=== PATIENT | male | born 1995 | race Caucasian/White ===

== ENCOUNTER 2018-01-10 17:03 | Emergency (ER) | payer OTHER ==
[~2018-01-10] VITALS: Ht 170.2 cm; Wt 72.0 kg
[2018-01-10 17:36] LABS: BASOPHILS % (AUTO) 0.2 % (0-1); EOSINOPHILS % (AUTO) 0 % (0-6); HEMATOCRIT 47.1 % (42.0-52.0); HEMOGLOBIN 16.2 g/dl (14.0-17.9); LYMPHOCYTES # (AUTO) 1.1 X10'3 (1.1-4.8); LYMPHOCYTES % (AUTO) 9.5 % (21-51); MEAN CORPUSCULAR HEMOGLOBIN 30.6 PG (27.0-31.0); MEAN CORPUSCULAR HGB CONC 34.3 % (33.0-36.5); MEAN CORPUSCULAR VOLUME 89.2 FL (78-98); MEAN PLATELET VOLUME 7.9 FL (7.4-10.4); MONOCYTES # (AUTO) 0.5 X10'3 (0-0.9); MONOCYTES % (AUTO) 4.5 % (2-12); NEUTROPHILS # (AUTO) 9.7 X10'3 (1.8-7.7); NEUTROPHILS % (AUTO) 85.8 % (42-75); PLATELET COUNT 251 X10'3 (140-440); RED BLOOD COUNT 5.28 X10'6 (4.70-6.10); RED CELL DISTRIBUTION WIDTH 12.9 % (11.5-14.5); WHITE BLOOD COUNT 11.4 X10'3 (4.5-11.0)
[2018-01-10 17:39] LABS: CLARITY,URINE CLOUDY (Clear); COLOR,URINE YELLOW (Yellow); GLUCOSE, URINE NEGATIVE (Neg); KETONES,URINE NEGATIVE (Neg); LEUKOCYTE ESTERASE ,URINE NEGATIVE (Neg); NITRITES, URINE NEGATIVE (Neg); OCCULT BLOOD,URINE NEGATIVE (Neg); PH,URINE 8.5 (4.8-8.0); PROTEIN,URINE NEGATIVE (Neg); UROBILINOGEN,URINE 0.2 E.U/dL (0.2-1.0)
[2018-01-10 17:40] LABS: UA COLLECTION TYPE CLN CATCH MIDSTREAM
[2018-01-10 17:45] LABS: AMORPHOUS PHOSPHATES 3+; MUCUS STRANDS MODERATE /LPF (Neg); SQUAMOUS EPITHELIAL CELL,UR MODERATE /LPF (FEW)
[2018-01-10] MEDS ORDERED: ondansetron/PF 4mg/2ml inj IV ONE (17:45)
[2018-01-10] MEDS ORDERED: dicyclomine 10mg/ml 2ml ampule IM ONE (17:45)
[2018-01-10] MEDS ORDERED: ketorolac tromethamine 15mg/ml inj. IV ONE (17:45)
[2018-01-10] MEDS ORDERED: normal saline 1000ML IV soln IVB ONE (17:45)
[2018-01-10 17:46] LABS: PROTHROMBIN TIME 10.5 SECONDS (9.0-12.0)
[2018-01-10 17:46] LABS: BACTERIA,URINE 1+ /HPF (Neg); RBC,URINE 0-2 /HPF (0-2)
[2018-01-10 17:52] LABS: ALANINE AMINOTRANSFERASE 26 U/L (12-78); ALBUMIN 4.7 G/DL (3.4-5.0); ALBUMIN/GLOBULIN RATIO 1.3 (1.1-1.5); ALKALINE PHOSPHATASE 85 IU/L (46-116); ANION GAP 10 (8-16); ASPARTATE AMINO TRANSFERASE 15 U/L (10-37); BILIRUBIN,TOTAL 0.9 MG/DL (0.1-1.0); BLOOD UREA NITROGEN 6 MG/DL (7-18); BUN/CREATININE RATIO 6.5 (5.4-32.0); CALCIUM 9.6 MG/DL (8.5-10.1); CHLORIDE 103 MMOL/L (99-107); CREATININE 0.92 MG/DL (0.60-1.10); GLUCOSE 108 MG/DL (70-104); LIPASE 104 U/L (73-393); POTASSIUM 3.3 MMOL/L (3.5-5.1); SODIUM 142 MMOL/L (135-145); TOTAL CARBON DIOXIDE 29.5 MMOL/L (24-32); TOTAL PROTEIN 8.4 G/DL (6.4-8.2); eGFR > 90 ML/MIN
[2018-01-10 17:54] LABS: URINE AMPHETAMINE SCREEN NEGATIVE (Neg); URINE BARBITUATE SCREEN NEGATIVE (Neg); URINE BENZODIAZEPINES SCREEN NEGATIVE (Neg); URINE CANNABINOID SCREEN POSITIVE (Neg); URINE COCAINE SCREEN NEGATIVE (Neg); URINE METHADONE SCREEN NEGATIVE (Neg); URINE OPIATE SCREEN NEGATIVE (Neg); URINE PHENCYCLIDINE SCREEN NEGATIVE (Neg)
[2018-01-10] MEDS ORDERED: HYDROcodone/acetaminophen 5mg/325mg tablet PO ONE (18:50)
[2018-01-10] MEDS ORDERED: ONDA4TAB12 PO (18:56)
[2018-01-10 19:08] VITALS: BP 115/64
== END 2018-01-10 19:11 | disposition home or self-care (01) ==
LOC: ER 17:04
DX: R10.13 Epigastric pain (principal)
CPT/HCPCS: 36415; 80053; 80305; 81001; 83690; 85025; 85610; 87088; 96361; 96372; 96374; 96375; 99284; J0500; J1885; J2405; J7030

== ENCOUNTER 2018-09-02 19:41 | Emergency (ER) | payer MEDICAID ==
[~2018-09-02] VITALS: Ht 167.6 cm; Wt 60.0 kg
[~2018-09-02 19:41] MED LIST: ONDA4TAB12 PO
[2018-09-02] MEDS ORDERED: ondansetron/PF 4mg/2ml inj IV ONE (20:35)
[2018-09-02] MEDS ORDERED: normal saline 1000ML IV soln IVB ONE (20:35)
[2018-09-02 20:42] VITALS: BP 125/80
[2018-09-02] MEDS ORDERED: morphine 4 MG/ML inj SYRINge IV ONE (20:45)
[2018-09-02 21:25] LABS: ALANINE AMINOTRANSFERASE 39 U/L (12-78); ALBUMIN 4.3 G/DL (3.4-5.0); ALBUMIN/GLOBULIN RATIO 1.3 (1.1-1.5); ALKALINE PHOSPHATASE 75 IU/L (46-116); ANION GAP 12 (8-16); ASPARTATE AMINO TRANSFERASE 16 U/L (10-37); BILIRUBIN,TOTAL 0.8 MG/DL (0.1-1.0); BLOOD UREA NITROGEN 10 MG/DL (7-18); CALCIUM 9.1 MG/DL (8.5-10.1); CHLORIDE 103 MMOL/L (99-107); CREATININE 0.83 MG/DL (0.60-1.10); GLUCOSE 157 MG/DL (70-104); LIPASE 111 U/L (73-393); POTASSIUM 3.3 MMOL/L (3.5-5.1); SODIUM 141 MMOL/L (135-145); TOTAL CARBON DIOXIDE 25.7 MMOL/L (24-32); TOTAL PROTEIN 7.6 G/DL (6.4-8.2); eGFR > 90 ML/MIN
[2018-09-02 21:28] LABS: H PYLORI ANTIBODY NEGATIVE (Neg)
[2018-09-02] MEDS: potassium Cl 20 mEq SR tablet PO ONE ×2 (21:45→22:35)
[2018-09-02 21:56] LABS: BASOPHILS % (AUTO) 0 % (0-1); EOSINOPHILS # (AUTO) 0.2 X10'3 (0-0.9); EOSINOPHILS % (AUTO) 1.2 % (0-6); HEMOGLOBIN 15.1 g/dl (14.0-17.9); LYMPHOCYTES % (AUTO) 7.5 % (21-51); MEAN CORPUSCULAR HEMOGLOBIN 30.8 PG (27.0-31.0); MEAN CORPUSCULAR HGB CONC 34.2 g/dL (33.0-36.5); MEAN PLATELET VOLUME 7.8 FL (7.4-10.4); MONOCYTES # (AUTO) 0.5 X10'3 (0-0.9); MONOCYTES % (AUTO) 3.6 % (2-12); NEUTROPHILS # (AUTO) 11.8 X10'3 (1.8-7.7); NEUTROPHILS % (AUTO) 87.7 % (42-75); PLATELET COUNT 237 X10'3 (140-440); RED BLOOD COUNT 4.89 X10'6 (4.70-6.10); RED CELL DISTRIBUTION WIDTH 12.7 % (11.5-14.5); WHITE BLOOD COUNT 13.4 X10'3 (4.5-11.0)
--- NOTE | 2018-09-02 22:02 | NUR ---
PT REPORTS HE IS VERY THIRSTY AND WOULD LIKE SOME JUICE. DR. VICENTE OK WITH HIM HAVING SOME. PT CURRENTLY DENIES NAUSEA.
--- NOTE | 2018-09-02 22:24 | NUR ---
PT ASKING DR. VICENTE FOR MEDS FOR HIS STOMACH. PT NOW HAS FAMILY AT BEDSIDE. PT TOLERATING THE JUICE HE DRANK EARLIER.
[2018-09-02] MEDS ORDERED: famotidine 20mg tablet PO ONE (22:30)
[2018-09-02] MEDS ORDERED: mag hydrox/Alum hydrox/simeth 30ml oral suspension PO ONE (22:30)
[2018-09-02] MEDS ORDERED: POTA10CA44 PO (22:38)
[2018-09-02] MEDS ORDERED: metoclopramide 5 mg/ml inj IV ONE (22:40)
--- NOTE | 2018-09-02 22:42 | NUR ---
PT IS DC READY, BUT AWAITING TO FINISH 2ND LITER NS. ALSO HAD ORDERS FOR KDUR AND FAMOTADINE AND MALLOX, BUT PT NOW REPORTING HIS ABD DISCOMFORT AND SOME NAUSEA RETURNING AND HE IS CONCERNED ABOUT TAKINIG ANYTHING ORALLY. DR. VICENTE UPDATED AND WILL ORDER REGLAN AND GIVE PT SCRIPT FOR POTASSIUM.
--- NOTE | 2018-09-02 23:15 | NUR ---
Pt to be discharged. Dr. Morris talking with Pt and 3 friends at bedside. Just given reglan.
[2018-09-03 00:08] LABS: PLATELET ESTIMATE NORMAL; TOTAL CELLS COUNTED 100
== END 2018-09-03 | disposition home or self-care (01) ==
LOC: ER 19:42
DX: K29.21 Alcoholic gastritis with bleeding (principal); E87.6 Hypokalemia; F12.90 Cannabis use, unspecified, uncomplicated
CPT/HCPCS: 80053; 83690; 85025; 86677; 96361; 96374; 96375; 99284; J2270; J2405; J2765; J7030

== ENCOUNTER 2018-09-26 06:20 | Emergency (ER) | payer MEDICAID ==
[~2018-09-26] VITALS: Ht 162.6 cm; Wt 165.0 kg
[2018-09-26] MEDS ORDERED: normal saline 1000ML IV soln IVB ONE ×2 (07:00)
[2018-09-26] MEDS ORDERED: pantoprazole 40 MG vial IV ONE (07:00)
[2018-09-26] MEDS ORDERED: ondansetron/PF 4mg/2ml inj IV ONE (07:00)
[2018-09-26] MEDS ORDERED: PANT-47 PO (07:22)
[2018-09-26] MEDS ORDERED: ONDA8TAB13 PO (07:22)
[2018-09-26] MEDS ORDERED: proCHLORperazine 10 MG/2 ml inj IV ONE (08:10)
[2018-09-26 08:26] VITALS: BP 122/62
[2018-09-26] MEDS ORDERED: PROM25SU46 RC (22:05)
[2018-09-26] MEDS ORDERED: ACET-2615 PO (22:05)
[2018-09-26] MEDS ORDERED: POTA20TA19 PO (22:11)
== END 2018-09-26 09:17 | disposition home or self-care (01) ==
LOC: ER 06:21
DX: R11.10 Vomiting, unspecified (principal); F12.90 Cannabis use, unspecified, uncomplicated
CPT/HCPCS: 93005; 96361; 96374; 96375; 99283; C9113; J0780; J2405; J7030

== ENCOUNTER 2018-09-26 20:00 | Emergency (ER) | payer MEDICAID ==
[~2018-09-26] VITALS: Ht 167.6 cm; Wt 74.0 kg
[~2018-09-26 20:00] MED LIST changes: +ONDA8TAB13 PO; +PANT-47 PO
--- NOTE | 2018-09-26 20:40 | NUR ---
DR SALCEDO AT BEDSIDE WITH PT, PT FALLING ASLEEP WHILE DR SALCEDO ASKING QUESTIONS. DR SALCEDO DID HAVE TO TAP PT TO WAKE HIM UP.
[2018-09-26] MEDS ORDERED: normal saline 1000ml 1,000 ML IV ONE ×2 (20:50)
[2018-09-26] MEDS ORDERED: diphenhydrAMINE 50 mg/ml inj IV ONE (20:50)
[2018-09-26] MEDS ORDERED: proCHLORperazine 10 MG/2 ml inj IV ONE (20:50)
[2018-09-26 21:12] LABS: BASOPHILS % (AUTO) 0.1 % (0-1); EOSINOPHILS % (AUTO) 0 % (0-6); HEMATOCRIT 42.3 % (42.0-52.0); HEMOGLOBIN 14.3 g/dl (14.0-17.9); LYMPHOCYTES # (AUTO) 0.7 X10'3 (1.1-4.8); LYMPHOCYTES % (AUTO) 6.2 % (21-51); MEAN CORPUSCULAR HEMOGLOBIN 29.8 PG (27.0-31.0); MEAN CORPUSCULAR HGB CONC 33.9 g/dL (33.0-36.5); MEAN CORPUSCULAR VOLUME 87.9 FL (78-98); MEAN PLATELET VOLUME 7.4 FL (7.4-10.4); MONOCYTES # (AUTO) 0.3 X10'3 (0-0.9); MONOCYTES % (AUTO) 2.3 % (2-12); NEUTROPHILS # (AUTO) 10.5 X10'3 (1.8-7.7); NEUTROPHILS % (AUTO) 91.4 % (42-75); PLATELET COUNT 266 X10'3 (140-440); RED BLOOD COUNT 4.81 X10'6 (4.70-6.10); RED CELL DISTRIBUTION WIDTH 12.7 % (11.5-14.5); WHITE BLOOD COUNT 11.5 X10'3 (4.5-11.0)
[2018-09-26 21:22] LABS: ALANINE AMINOTRANSFERASE 28 U/L (12-78); ALBUMIN/GLOBULIN RATIO 1.3 (1.1-1.5); ALKALINE PHOSPHATASE 72 IU/L (46-116); ANION GAP 15 (8-16); ASPARTATE AMINO TRANSFERASE 18 U/L (10-37); BILIRUBIN,TOTAL 0.7 MG/DL (0.1-1.0); BLOOD UREA NITROGEN 7 MG/DL (7-18); BUN/CREATININE RATIO 7.9 (5.4-32.0); CALCIUM 8.7 MG/DL (8.5-10.1); CHLORIDE 102 MMOL/L (99-107); CREATININE 0.89 MG/DL (0.60-1.10); ETHANOL < 0.010 GM/DL (0.0-0.010); GLUCOSE 122 MG/DL (70-104); LIPASE 199 U/L (73-393); SODIUM 139 MMOL/L (135-145); TOTAL CARBON DIOXIDE 22.4 MMOL/L (24-32); TOTAL PROTEIN 7.2 G/DL (6.4-8.2); eGFR > 90 ML/MIN
[2018-09-26] MEDS ORDERED: ketorolac trometh. 30mg/ml inj. IV ONE (21:40)
[2018-09-26] MEDS ORDERED: potassium Cl 10 mEq/100mL bag IV ONE (21:40)
[2018-09-26] MEDS ORDERED: potassium 10mEq/100ml NS w/LIDOcaine (10mg/bag) IV ONE (21:45)
[2018-09-26] MEDS ORDERED: PROM25SU46 RC (22:05)
[2018-09-26] MEDS ORDERED: ACET-2615 PO (22:05)
[2018-09-26] MEDS ORDERED: POTA20TA19 PO (22:11)
--- NOTE | 2018-09-26 22:17 | NUR ---
ASSISTING RN WITH PT CARE, IV SITE IS PATENT AND CLEAR, GAVE PT WARM BLANKET, PT HAS RIDE HOME WHEN HE IS DC'D, PT RESTING QUIETLY ON GURNEY
[2018-09-26 23:19] VITALS: BP 124/47
== END 2018-09-26 23:20 | disposition home or self-care (01) ==
LOC: ER 20:00
DX: A08.4 Viral intestinal infection, unspecified (principal); F12.90 Cannabis use, unspecified, uncomplicated
CPT/HCPCS: 36415; 80053; 80320; 83690; 85025; 96361; 96374; 96375; 99283; J0780; J1200; J1885; J3480; J7030

== ENCOUNTER 2018-11-05 07:51 | Emergency (ER) | payer MEDICAID ==
[~2018-11-05] VITALS: Ht 167.6 cm; Wt 73.0 kg
[~2018-11-05 07:51] MED LIST changes: +PROM25SU46 RC
[2018-11-05 08:22] VITALS: BP 125/69
[2018-11-05] MEDS ORDERED: ONDA8TAB6 PO (14:45)
[2018-11-05] MEDS ORDERED: PANT-47 PO (14:45)
[2018-11-05] MEDS ORDERED: PHE25R PR (16:06)
== END 2018-11-05 10:52 | disposition left against medical advice (07) ==
LOC: ER 07:53
DX: R10.9 Unspecified abdominal pain (principal); R11.10 Vomiting, unspecified; Z53.21 Procedure and treatment not carried out due to patient leaving prior to being seen by health care provider

== ENCOUNTER 2018-11-05 12:04 | Emergency (ER) | payer MEDICAID ==
[~2018-11-05] VITALS: Ht 170.2 cm; Wt 73.0 kg
--- NOTE | 2018-11-05 12:50 | NUR ---
PATIENT STICKING HIS FINGER DOWN HIS THROAT IN LOBBY: ASKED ME IN TRIAGE FOR ICE FOR HIS THROAT ASKED THE PATIENT NOT TO STICK HIS FINGER DOWN HIS THROAT: VOMIT IS CLEARISH BROWN, NPT BLOODY
[2018-11-05 13:13] LABS: BASOPHILS % (AUTO) 0.1 % (0-1); EOSINOPHILS % (AUTO) 0 % (0-6); HEMATOCRIT 42.6 % (42.0-52.0); HEMOGLOBIN 14.6 g/dl (14.0-17.9); LYMPHOCYTES # (AUTO) 0.7 X10'3 (1.1-4.8); MEAN CORPUSCULAR HGB CONC 34.3 g/dL (33.0-36.5); MEAN CORPUSCULAR VOLUME 87.5 FL (78-98); MEAN PLATELET VOLUME 7.6 FL (7.4-10.4); MONOCYTES # (AUTO) 0.3 X10'3 (0-0.9); NEUTROPHILS # (AUTO) 10.5 X10'3 (1.8-7.7); NEUTROPHILS % (AUTO) 90.9 % (42-75); PLATELET COUNT 244 X10'3 (140-440); RED BLOOD COUNT 4.87 X10'6 (4.70-6.10); WHITE BLOOD COUNT 11.5 X10'3 (4.5-11.0)
[2018-11-05 13:24] LABS: ALANINE AMINOTRANSFERASE 31 U/L (12-78); ALBUMIN 4.5 G/DL (3.4-5.0); ALBUMIN/GLOBULIN RATIO 1.4 (1.1-1.5); ALKALINE PHOSPHATASE 73 IU/L (46-116); ANION GAP 12 (8-16); ASPARTATE AMINO TRANSFERASE 30 U/L (10-37); BILIRUBIN,TOTAL 0.6 MG/DL (0.1-1.0); BLOOD UREA NITROGEN 8 MG/DL (7-18); BUN/CREATININE RATIO 9.6 (5.4-32.0); CALCIUM 9.5 MG/DL (8.5-10.1); CHLORIDE 105 MMOL/L (99-107); CREATININE 0.83 MG/DL (0.60-1.10); GLUCOSE 153 MG/DL (70-104); LIPASE 93 U/L (73-393); POTASSIUM 3.2 MMOL/L (3.5-5.1); SODIUM 139 MMOL/L (135-145); TOTAL CARBON DIOXIDE 22.5 MMOL/L (24-32); TOTAL PROTEIN 7.8 G/DL (6.4-8.2); eGFR > 90 ML/MIN
[2018-11-05] MEDS ORDERED: normal saline 1000ml 1,000 ML IV ONE ×2 (14:35→14:40)
[2018-11-05] MEDS ORDERED: ketorolac trometh. 30mg/ml inj. IV ONE (14:35)
[2018-11-05] MEDS ORDERED: ondansetron/PF 4mg/2ml inj IV ONE (14:35)
[2018-11-05] MEDS ORDERED: pantoprazole 40 MG vial IV ONE (14:35)
[2018-11-05] MEDS ORDERED: potassium 10mEq/100ml NS w/LIDOcaine (10mg/bag) IV ONE (14:40)
[2018-11-05] MEDS ORDERED: mag hydrox/Alum hydrox/simeth 30ml oral suspension PO ONE (14:40)
[2018-11-05] MEDS ORDERED: famotidine/PF 10 mg/ml inj IV ONE (14:40)
[2018-11-05] MEDS ORDERED: ONDA8TAB6 PO (14:45)
[2018-11-05] MEDS ORDERED: PANT-47 PO (14:45)
--- NOTE | 2018-11-05 15:32 | NUR ---
Patient continues to state he vomiting. Noted dark red emisis in bag. Dr. Mohan aware.
[2018-11-05] MEDS ORDERED: proCHLORperazine 10 MG/2 ml inj IV ONE (15:35)
[2018-11-05] MEDS ORDERED: LORazepam 2 mg/ml vial IV ONE (15:35)
[2018-11-05] MEDS ORDERED: diphenhydrAMINE 50 mg/ml inj IV ONE (15:35)
[2018-11-05] MEDS ORDERED: morphine 4 MG/ML inj SYRINge IM ONE (15:50)
[2018-11-05] MEDS ORDERED: dicyclomine 10mg/ml 2ml ampule IM ONE (15:50)
[2018-11-05] MEDS ORDERED: PHE25R PR (16:06)
[2018-11-05 16:19] LABS: CLARITY,URINE CLOUDY (Clear); COLOR,URINE STRAW (Yellow); GLUCOSE, URINE NEGATIVE (Neg); KETONES,URINE 15 mg/dl (Neg); LEUKOCYTE ESTERASE ,URINE NEGATIVE (Neg); NITRITES, URINE NEGATIVE (Neg); OCCULT BLOOD,URINE NEGATIVE (Neg); PROTEIN,URINE NEGATIVE (Neg); UROBILINOGEN,URINE 0.2 E.U/dL (0.2-1.0)
--- NOTE | 2018-11-05 16:20 | NUR ---
Patient no longer nauseated. Patient awaiting friend to arrive for ride home.
[2018-11-05 16:24] LABS: URINE AMPHETAMINE SCREEN NEGATIVE (Neg); URINE BARBITUATE SCREEN POSITIVE (Neg); URINE BENZODIAZEPINES SCREEN NEGATIVE (Neg); URINE CANNABINOID SCREEN POSITIVE (Neg); URINE COCAINE SCREEN NEGATIVE (Neg); URINE METHADONE SCREEN NEGATIVE (Neg); URINE OPIATE SCREEN NEGATIVE (Neg); URINE PHENCYCLIDINE SCREEN NEGATIVE (Neg)
[2018-11-05 16:25] LABS: AMORPHOUS PHOSPHATES 4+; UA COLLECTION TYPE CLN CATCH MIDSTREAM
[2018-11-05 16:26] LABS: MUCUS STRANDS MODERATE /LPF (Neg); SQUAMOUS EPITHELIAL CELL,UR FEW /LPF (FEW); TRANSITIONAL EPI CELLS,URINE FEW /HPF
[2018-11-05 16:27] LABS: BACTERIA,URINE NONE SEEN /HPF (Neg); RBC,URINE NONE SEEN /HPF (0-2); WBC,URINE 0-4 /HPF (0-4)
[2018-11-05 17:56] VITALS: BP 107/49
== END 2018-11-05 17:59 | disposition home or self-care (01) ==
LOC: ER 12:05
DX: K29.00 Acute gastritis without bleeding (principal); F12.90 Cannabis use, unspecified, uncomplicated; Z79.899 Other long term (current) drug therapy
CPT/HCPCS: 36415; 80053; 80305; 81001; 83690; 85025; 96361; 96372; 96374; 96375; 99283; C9113; J0500; J0780; J1200; J1885; J2060; J2405; J3480; J3490; J7030

== ENCOUNTER 2018-12-31 07:43 | Emergency (ER) | payer MEDICAID ==
[~2018-12-31] VITALS: Ht 167.6 cm; Wt 68.3 kg
[~2018-12-31 07:43] MED LIST changes: +ONDA8TAB6 PO; +PHE25R PR
[2018-12-31] MEDS ORDERED: ondansetron/PF 4mg/2ml inj IV ONE (08:15)
[2018-12-31] MEDS ORDERED: normal saline 1000ML IV soln IVB ONE ×2 (08:15→09:40)
[2018-12-31 09:12] LABS: BASOPHILS % (AUTO) 0.1 % (0-1); EOSINOPHILS % (AUTO) 0.1 % (0-6); HEMATOCRIT 42.5 % (42.0-52.0); HEMOGLOBIN 14.6 g/dl (14.0-17.9); LYMPHOCYTES # (AUTO) 0.9 X10'3 (1.1-4.8); MEAN CORPUSCULAR HEMOGLOBIN 30.6 PG (27.0-31.0); MEAN CORPUSCULAR HGB CONC 34.4 g/dL (33.0-36.5); MEAN CORPUSCULAR VOLUME 89.1 FL (78-98); MEAN PLATELET VOLUME 7.5 FL (7.4-10.4); MONOCYTES # (AUTO) 0.5 X10'3 (0-0.9); MONOCYTES % (AUTO) 4.4 % (2-12); NEUTROPHILS # (AUTO) 10.2 X10'3 (1.8-7.7); NEUTROPHILS % (AUTO) 87.4 % (42-75); PLATELET COUNT 230 X10'3 (140-440); RED BLOOD COUNT 4.77 X10'6 (4.70-6.10); RED CELL DISTRIBUTION WIDTH 13.2 % (11.5-14.5); WHITE BLOOD COUNT 11.7 X10'3 (4.5-11.0)
[2018-12-31 09:33] LABS: ALANINE AMINOTRANSFERASE 22 U/L (12-78); ALBUMIN 4.1 G/DL (3.4-5.0); ALBUMIN/GLOBULIN RATIO 1.3 (1.1-1.5); ALKALINE PHOSPHATASE 62 IU/L (46-116); ANION GAP 9 (8-16); ASPARTATE AMINO TRANSFERASE 13 U/L (10-37); BILIRUBIN,TOTAL 0.9 MG/DL (0.1-1.0); BLOOD UREA NITROGEN 8 MG/DL (7-18); BUN/CREATININE RATIO 9.4 (5.4-32.0); CHLORIDE 104 MMOL/L (99-107); CREATININE 0.85 MG/DL (0.60-1.10); GLUCOSE 135 MG/DL (70-104); LIPASE 78 U/L (73-393); SODIUM 140 MMOL/L (135-145); TOTAL CARBON DIOXIDE 27.2 MMOL/L (24-32); TOTAL PROTEIN 7.2 G/DL (6.4-8.2); eGFR > 90 ML/MIN
[2018-12-31 09:36] LABS: POTASSIUM 2.8 MMOL/L (3.5-5.1)
[2018-12-31 09:39] LABS: CALCIUM 8.5 MG/DL (8.5-10.1)
[2018-12-31] MEDS ORDERED: proCHLORperazine 10 MG/2 ml inj IV ONE (09:40)
[2018-12-31] MEDS ORDERED: potassium 10mEq/100ml NS w/LIDOcaine (10mg/bag) IV ONE (09:40)
[2018-12-31] MEDS ORDERED: potassium Cl 20 mEq SR tablet PO ONE (09:40)
[2018-12-31] MEDS ORDERED: potassium Cl 10 mEq/100mL bag IV ONE (09:45)
[2018-12-31 09:49] LABS: MAGNESIUM 1.9 MG/DL (1.5-2.4)
[2018-12-31] MEDS ORDERED: POTA-84 PO (11:52)
[2018-12-31 12:08] VITALS: BP 120/65
== END 2018-12-31 12:14 | disposition home or self-care (01) ==
LOC: ER 07:43
DX: R11.2 Nausea with vomiting, unspecified (principal); E87.6 Hypokalemia; F12.20 Cannabis dependence, uncomplicated; R10.13 Epigastric pain; Z79.899 Other long term (current) drug therapy
CPT/HCPCS: 36415; 80053; 83690; 83735; 85025; 93005; 96374; 96375; 99284; J0780; J2405; J3480

== ENCOUNTER 2019-03-02 08:32 | Emergency (ER) | payer MEDICAID ==
[~2019-03-02] VITALS: Ht 167.6 cm; Wt 68.2 kg
[~2019-03-02 08:32] MED LIST changes: +POTA-84 PO
[2019-03-02] MEDS ORDERED: normal saline 1000ML IV soln IVB ONE (08:50)
[2019-03-02] MEDS ORDERED: proCHLORperazine 10 MG/2 ml inj IV ONE (08:50)
[2019-03-02 10:05] LABS: ALANINE AMINOTRANSFERASE 34 U/L (12-78); ALBUMIN 4.2 G/DL (3.4-5.0); ALBUMIN/GLOBULIN RATIO 1.2 (1.1-1.5); ALKALINE PHOSPHATASE 72 IU/L (46-116); ANION GAP 10 (8-16); ASPARTATE AMINO TRANSFERASE 19 U/L (10-37); BILIRUBIN,TOTAL 0.6 MG/DL (0.1-1.0); BLOOD UREA NITROGEN 6 MG/DL (7-18); BUN/CREATININE RATIO 6.5 (5.4-32.0); CHLORIDE 105 MMOL/L (99-107); CREATININE 0.93 MG/DL (0.60-1.10); GLUCOSE 147 MG/DL (70-104); LIPASE 92 U/L (73-393); POTASSIUM 3.7 MMOL/L (3.5-5.1); SODIUM 142 MMOL/L (135-145); TOTAL CARBON DIOXIDE 26.6 MMOL/L (24-32); TOTAL PROTEIN 7.7 G/DL (6.4-8.2); eGFR > 90 ML/MIN
[2019-03-02 10:13] LABS: URINE AMPHETAMINE SCREEN NEGATIVE (Neg); URINE BARBITUATE SCREEN NEGATIVE (Neg); URINE BENZODIAZEPINES SCREEN NEGATIVE (Neg); URINE CANNABINOID SCREEN POSITIVE (Neg); URINE COCAINE SCREEN POSITIVE (Neg); URINE METHADONE SCREEN NEGATIVE (Neg); URINE OPIATE SCREEN NEGATIVE (Neg); URINE PHENCYCLIDINE SCREEN NEGATIVE (Neg)
[2019-03-02 10:14] LABS: BASOPHILS % (AUTO) 0.1 % (0-1); EOSINOPHILS % (AUTO) 0 % (0-6); HEMATOCRIT 45.9 % (42.0-52.0); HEMOGLOBIN 15.6 g/dl (14.0-17.9); LYMPHOCYTES # (AUTO) 1.1 X10'3 (1.1-4.8); LYMPHOCYTES % (AUTO) 7.8 % (21-51); MEAN CORPUSCULAR HEMOGLOBIN 30.3 PG (27.0-31.0); MEAN CORPUSCULAR VOLUME 89.2 FL (78-98); MEAN PLATELET VOLUME 7.6 FL (7.4-10.4); MONOCYTES # (AUTO) 0.4 X10'3 (0-0.9); NEUTROPHILS # (AUTO) 12.2 X10'3 (1.8-7.7); NEUTROPHILS % (AUTO) 89.1 % (42-75); PLATELET COUNT 246 X10'3 (140-440); RED BLOOD COUNT 5.14 X10'6 (4.70-6.10); RED CELL DISTRIBUTION WIDTH 13.2 % (11.5-14.5); WHITE BLOOD COUNT 13.6 X10'3 (4.5-11.0)
[2019-03-02 10:46] VITALS: BP 120/65
== END 2019-03-02 10:48 | disposition home or self-care (01) ==
LOC: ER 08:32
DX: R11.2 Nausea with vomiting, unspecified (principal); R10.13 Epigastric pain; F12.90 Cannabis use, unspecified, uncomplicated; Z79.899 Other long term (current) drug therapy
CPT/HCPCS: 36415; 80053; 80305; 83690; 85025; 96361; 96374; 99283; J0780; J7030

== ENCOUNTER 2019-03-31 21:25 | Emergency (ER) | payer MEDICAID ==
[~2019-03-31] VITALS: Ht 167.6 cm; Wt 72.7 kg
[2019-03-31] MEDS ORDERED: LIDOcaine 1% w/epiNEPHrine 1:200,000 30ml vial IM ONE (22:25)
[2019-03-31] MEDS ORDERED: DOXY100C2 PO (23:17)
[2019-03-31 23:32] VITALS: BP 127/58
== END 2019-03-31 23:36 | disposition home or self-care (01) ==
LOC: ER 21:26
DX: L03.012 Cellulitis of left finger (principal); F12.90 Cannabis use, unspecified, uncomplicated; F10.99 Alcohol use, unspecified with unspecified alcohol-induced disorder; Z79.899 Other long term (current) drug therapy; Y90.9 Presence of alcohol in blood, level not specified
CPT/HCPCS: 10060; 99283

== ENCOUNTER 2019-04-01 12:11 | Emergency (ER) | payer MEDICAID ==
[~2019-04-01] VITALS: Ht 167.6 cm; Wt 77.3 kg
[~2019-04-01 12:11] MED LIST changes: +DOXY100C2 PO
[2019-04-01 12:13] VITALS: BP 132/72
[2019-04-01] MEDS ORDERED: DOXYCYCLINE 100MG CAPSULE PO STA (12:48)
[2019-04-01] MEDS ORDERED: naproxen 500mg tablet PO ONE (12:50)
== END 2019-04-01 13:35 | disposition home or self-care (01) ==
LOC: ER 12:11
DX: L03.012 Cellulitis of left finger (principal); F12.90 Cannabis use, unspecified, uncomplicated; F10.99 Alcohol use, unspecified with unspecified alcohol-induced disorder; Z79.899 Other long term (current) drug therapy; Y90.9 Presence of alcohol in blood, level not specified
CPT/HCPCS: 99283

== ENCOUNTER 2019-06-16 17:05 | Emergency (ER) | payer MEDICAID ==
[~2019-06-16] VITALS: Ht 167.6 cm; Wt 72.0 kg
[~2019-06-16 17:05] MED LIST changes: -DOXY100C2 PO
--- NOTE | 2019-06-16 17:43 | NUR ---
Pt admits to drinking "quite a bit" last night. Pt states he had at least 6 shots of Patron as well as drinking beer.
--- NOTE | 2019-06-16 17:45 | NUR ---
Pt observed sticking his finger down his throat in order to vomit.
[2019-06-16] MEDS ORDERED: ondansetron/PF 4mg/2ml inj IV ONE (18:15)
[2019-06-16] MEDS ORDERED: ketorolac tromethamine 15mg/ml inj. IV ONE ×2 (18:15→19:15)
[2019-06-16] MEDS ORDERED: normal saline 1000ML IV soln IVB ONE (18:30)
[2019-06-16 18:40] LABS: BASOPHILS % (AUTO) 0.1 % (0-1); EOSINOPHILS % (AUTO) 0.1 % (0-6); HEMATOCRIT 43.1 % (42.0-52.0); HEMOGLOBIN 15.1 g/dl (14.0-17.9); LYMPHOCYTES # (AUTO) 1.1 X10'3 (1.1-4.8); LYMPHOCYTES % (AUTO) 10.1 % (21-51); MEAN CORPUSCULAR HEMOGLOBIN 30.9 PG (27.0-31.0); MEAN CORPUSCULAR HGB CONC 35.1 g/dL (33.0-36.5); MEAN CORPUSCULAR VOLUME 88.1 FL (78-98); MEAN PLATELET VOLUME 7.4 FL (7.4-10.4); MONOCYTES # (AUTO) 0.4 X10'3 (0-0.9); MONOCYTES % (AUTO) 3.8 % (2-12); NEUTROPHILS # (AUTO) 9.4 X10'3 (1.8-7.7); NEUTROPHILS % (AUTO) 85.9 % (42-75); PLATELET COUNT 291 X10'3 (140-440); RED CELL DISTRIBUTION WIDTH 12.8 % (11.5-14.5); WHITE BLOOD COUNT 10.9 X10'3 (4.5-11.0)
[2019-06-16 18:44] LABS: ANION GAP 9 (8-16); BILIRUBIN,TOTAL 0.7 MG/DL (0.1-1.0); BLOOD UREA NITROGEN 9 MG/DL (7-18); BUN/CREATININE RATIO 10.3 (5.4-32.0); CALCIUM 8.9 MG/DL (8.5-10.1); CHLORIDE 103 MMOL/L (99-107); CREATININE 0.87 MG/DL (0.60-1.10); GLUCOSE 136 MG/DL (70-104); POTASSIUM 3.2 MMOL/L (3.5-5.1); SODIUM 138 MMOL/L (135-145); eGFR > 90 ML/MIN
[2019-06-16 18:45] LABS: ALANINE AMINOTRANSFERASE 41 U/L (12-78); ALBUMIN 4.2 G/DL (3.4-5.0); ALBUMIN/GLOBULIN RATIO 1.1 (1.1-1.5); ALKALINE PHOSPHATASE 91 IU/L (46-116); ASPARTATE AMINO TRANSFERASE 20 U/L (10-37); ETHANOL < 0.010 GM/DL (0.0-0.010); LIPASE 76 U/L (73-393)
[2019-06-16] MEDS ORDERED: ONDA4TAB6 PO (19:13)
[2019-06-16] MEDS ORDERED: haloperidol lactate 5mg/ml inj IM ONE (19:15)
[2019-06-16] MEDS ORDERED: potassium Cl 20 mEq SR tablet PO STA (19:20)
--- NOTE | 2019-06-16 19:35 | NUR ---
Discussed pt's status with SHELLEY Chiu; new orders received for viscose lidocaine, maalox and pepcid.
[2019-06-16] MEDS ORDERED: mag hydrox/Alum hydrox/simeth 30ml oral suspension PO ONE (19:40)
[2019-06-16] MEDS ORDERED: LIDOcaine Viscous 15ml cup MM PRN (19:40)
[2019-06-16] MEDS ORDERED: famotidine/PF 10 mg/ml inj IV ONE (19:40)
[2019-06-16 20:25] VITALS: BP 137/89
== END 2019-06-16 20:44 | disposition home or self-care (01) ==
LOC: ER 17:06
DX: R11.2 Nausea with vomiting, unspecified (principal); R10.84 Generalized abdominal pain; F12.90 Cannabis use, unspecified, uncomplicated; Z79.899 Other long term (current) drug therapy
CPT/HCPCS: 36415; 80053; 80320; 83690; 85025; 96372; 96374; 96375; 96376; 99283; J1630; J1885; J2405; J3490; J7030

== ENCOUNTER 2019-06-18 00:30 | Emergency (ER) | payer MEDICAID ==
[~2019-06-18] VITALS: Ht 167.6 cm; Wt 61.2 kg
[~2019-06-18 00:30] MED LIST changes: +ONDA4TAB6 PO
--- NOTE | 2019-06-18 01:11 | NUR ---
Witnessed patient putting his finger down his throat in an attempt to make himself throw up
[2019-06-18] MEDS ORDERED: sucralfate 1gm/10ml UD suspension PO ONE (02:00)
[2019-06-18] MEDS ORDERED: proCHLORperazine 10 MG/2 ml inj IM ONE (02:00)
[2019-06-18] MEDS ORDERED: ondansetron 4mg rapidly disintigrating tab PO ONE (02:00)
[2019-06-18] MEDS ORDERED: SUCR1TAB34 PO (02:03)
[2019-06-18] MEDS ORDERED: PHE25R PR (02:03)
[2019-06-18] MEDS ORDERED: PANT-47 PO (02:05)
[2019-06-18] MEDS ORDERED: pantoprazole 40mg Tablet.DR PO ONE (02:05)
[2019-06-18 02:21] VITALS: BP 137/70
[2019-06-18] MEDS ORDERED: NO HOME MEDS (17:13)
== END 2019-06-18 02:27 | disposition home or self-care (01) ==
LOC: ER 00:30
DX: K29.70 Gastritis, unspecified, without bleeding (principal); F12.90 Cannabis use, unspecified, uncomplicated
CPT/HCPCS: 96372; 99284; J0780

== ENCOUNTER 2019-06-18 12:18 | Inpatient (IN) | payer MEDICAID ==
[~2019-06-18] VITALS: Ht 167.6 cm; Wt 71.7 kg
[~2019-06-18 12:18] MED LIST changes: +SUCR1TAB34 PO
[2019-06-18 13:02] LABS: BASOPHILS % (AUTO) 0.1 % (0-1); EOSINOPHILS % (AUTO) 0 % (0-6); HEMATOCRIT 44.6 % (42.0-52.0); HEMOGLOBIN 15.2 g/dl (14.0-17.9); LYMPHOCYTES # (AUTO) 1.5 X10'3 (1.1-4.8); LYMPHOCYTES % (AUTO) 13.8 % (21-51); MEAN CORPUSCULAR HGB CONC 34.2 g/dL (33.0-36.5); MEAN CORPUSCULAR VOLUME 90.8 FL (78-98); MEAN PLATELET VOLUME 7.3 FL (7.4-10.4); MONOCYTES # (AUTO) 0.6 X10'3 (0-0.9); MONOCYTES % (AUTO) 5.3 % (2-12); NEUTROPHILS % (AUTO) 80.8 % (42-75); PLATELET COUNT 287 X10'3 (140-440); RED BLOOD COUNT 4.91 X10'6 (4.70-6.10); RED CELL DISTRIBUTION WIDTH 12.9 % (11.5-14.5); WHITE BLOOD COUNT 11.2 X10'3 (4.5-11.0)
[2019-06-18 13:14] LABS: PARTIAL THROMBOPLASTIN TIME 23 SECONDS (22-32)
[2019-06-18 13:17] LABS: ALBUMIN 4.4 G/DL (3.4-5.0); ALBUMIN/GLOBULIN RATIO 1.1 (1.1-1.5); ALKALINE PHOSPHATASE 96 IU/L (46-116); ANION GAP 20 (8-16); ASPARTATE AMINO TRANSFERASE 33 U/L (10-37); BILIRUBIN,TOTAL 0.7 MG/DL (0.1-1.0); BLOOD UREA NITROGEN 8 MG/DL (7-18); CALCIUM 9.4 MG/DL (8.5-10.1); CHLORIDE 99 MMOL/L (99-107); CREATININE 1.34 MG/DL (0.60-1.10); GLUCOSE 138 MG/DL (70-104); SODIUM 141 MMOL/L (135-145); TOTAL CARBON DIOXIDE 21.8 MMOL/L (24-32); TOTAL PROTEIN 8.4 G/DL (6.4-8.2); eGFR 67 ML/MIN
[2019-06-18] MEDS ORDERED: LORazepam 2 mg/ml vial IV ONE (13:30)
[2019-06-18] MEDS ORDERED: normal saline 1000ml 1,000 ML IV ONE ×2 (13:30)
[2019-06-18 13:49] LABS: CLARITY,URINE CLEAR (Clear); COLOR,URINE YELLOW (Yellow); GLUCOSE, URINE NEGATIVE (Neg); KETONES,URINE TRACE mg/dl (Neg); LEUKOCYTE ESTERASE ,URINE NEGATIVE (Neg); NITRITES, URINE NEGATIVE (Neg); OCCULT BLOOD,URINE NEGATIVE (Neg); PH,URINE 6.5 (4.8-8.0); PROTEIN,URINE NEGATIVE (Neg); UROBILINOGEN,URINE 0.2 E.U/dL (0.2-1.0)
[2019-06-18 13:57] LABS: URINE AMPHETAMINE SCREEN NEGATIVE (Neg); URINE BARBITUATE SCREEN NEGATIVE (Neg); URINE BENZODIAZEPINES SCREEN NEGATIVE (Neg); URINE CANNABINOID SCREEN POSITIVE (Neg); URINE COCAINE SCREEN POSITIVE (Neg); URINE METHADONE SCREEN NEGATIVE (Neg); URINE OPIATE SCREEN NEGATIVE (Neg); URINE PHENCYCLIDINE SCREEN NEGATIVE (Neg)
[2019-06-18 14:07] LABS: UA COLLECTION TYPE STRAIGHT CATH
[2019-06-18 14:20] LABS: ALANINE AMINOTRANSFERASE 39 U/L (12-78)
[2019-06-18 14:42] LABS: MAGNESIUM 2.2 MG/DL (1.5-2.4)
[2019-06-18 14:43] LABS: ETHANOL < 0.010 GM/DL (0.0-0.010)
[2019-06-18] MEDS ORDERED: D5-1/2NS w/20 mEq potassium per 1000ml IV ONE (15:25)
[2019-06-18] MEDS ORDERED: potassium Cl 20mEq in D5-NS 1,000 ML IV ONE (15:30)
[2019-06-18] MEDS ORDERED: potassium CL 20mEq in D5-1/2NS 1,000 ML IV ONE (15:35)
[2019-06-18] MEDS ORDERED: magnesium 2GM in 50ml NS 50 ML IV ONE (15:55)
[2019-06-18] MEDS: normal saline 1000ml 1,000 ML IV SCH ×2 (16:11→20:47)
[2019-06-18] MEDS ORDERED: mag hydrox/Alum hydrox/simeth 30ml oral suspension PO PRN (16:15)
[2019-06-18] MEDS ORDERED: HYDROcodone/acetaminophen 5mg/325mg tablet PO PRN (16:15)
[2019-06-18] MEDS ORDERED: acetaminophen 325mg tablet PO PRN ×2 (16:15)
[2019-06-18] MEDS ORDERED: morphine 2 MG/ML inj. syringe IV PRN ×2 (16:15)
[2019-06-18] MEDS ORDERED: magnesium Cl slow-release 64mg tablet PO PRN (16:15)
[2019-06-18] MEDS ORDERED: magnesium 4gm in 100ml NS 100 ML IV PRN (16:15)
[2019-06-18] MEDS ORDERED: magnesium 2GM in 50ml NS 50 ML IV PRN (16:15)
[2019-06-18] MEDS ORDERED: potassium Cl 20 mEq SR tablet PO PRN (16:15)
[2019-06-18] MEDS ORDERED: ondansetron/PF 4mg/2ml inj IV PRN (16:15)
[2019-06-18] MEDS ORDERED: potassium CL 10mEq/100ml bag 100 ML IV PRN ×2 (16:15)
[2019-06-18] MEDS ORDERED: magnesium hydroxide 30ml (MOM) UD suspension PO PRN (16:15)
--- NOTE | 2019-06-18 17:00 | NUR ---
pt resting in bed, appears sleeping. No complaints. Normal breathing with no labor.
[2019-06-18] MEDS ORDERED: NO HOME MEDS (17:13)
--- NOTE | 2019-06-18 18:03 | NUR ---
1st attempt to give SBAR report to floor. No RN available until 18:30
[2019-06-18 18:45] VITALS: BP 119/77
[2019-06-18] MEDS: potassium Cl 20 mEq SR tablet PO PRN (18:54)
[2019-06-18] MEDS ORDERED: folic acid inj. 2 MG, thiamine inj. 100 MG, MVI, adult No.4 with vit. K 10 ML in dextro... IV SCH ×4 (19:35)
[2019-06-18] MEDS ORDERED: LORazepam 1 MG tablet PO PRN (19:35)
[2019-06-18] MEDS ORDERED: LORazepam 2 mg/ml vial IV PRN (19:35)
[2019-06-18] MEDS ORDERED: thiamine inj. 100 MG, folic acid inj. 2 MG in normal saline 100ml IV soln 99 ML IV ONE (19:55)
[2019-06-18] MEDS ORDERED: MVI, adult No.4 with vit. K 10 ML in dextrose 5% water 500ml 500 ML IV ONE ×2 (19:55)
[2019-06-18 22:00] VITALS: BP 103/52
[2019-06-18] MEDS: LORazepam 1 MG tablet PO PRN (22:20)
[2019-06-19] MEDS: potassium Cl 20 mEq SR tablet PO PRN (00:22)
[2019-06-19] MEDS: normal saline 1000ml 1,000 ML IV SCH ×4 (02:11→12:11)
[2019-06-19 06:00] VITALS: BP 96/46
--- NOTE | 2019-06-19 06:07 | NUR ---
Problems reprioritized. Patient report given, questions answered & plan of care reviewed with TEE ANDRES.
[2019-06-19 06:13] LABS: BASOPHILS % (AUTO) 0.1 % (0-1); EOSINOPHILS % (AUTO) 0.2 % (0-6); HEMATOCRIT 38.5 % (42.0-52.0); HEMOGLOBIN 13.1 g/dl (14.0-17.9); LYMPHOCYTES % (AUTO) 29.4 % (21-51); MEAN CORPUSCULAR HEMOGLOBIN 31.2 PG (27.0-31.0); MEAN CORPUSCULAR VOLUME 91.9 FL (78-98); MEAN PLATELET VOLUME 7.6 FL (7.4-10.4); MONOCYTES # (AUTO) 0.5 X10'3 (0-0.9); MONOCYTES % (AUTO) 7.4 % (2-12); NEUTROPHILS # (AUTO) 4.3 X10'3 (1.8-7.7); NEUTROPHILS % (AUTO) 62.9 % (42-75); PLATELET COUNT 212 X10'3 (140-440); RED CELL DISTRIBUTION WIDTH 13.3 % (11.5-14.5); WHITE BLOOD COUNT 6.8 X10'3 (4.5-11.0)
--- NOTE | 2019-06-19 06:14 | NUR ---
RECEIVED REPORT FROM TEE CHAVEZ
[2019-06-19 06:16] LABS: ALBUMIN 3.2 G/DL (3.4-5.0); ANION GAP 9 (8-16); BLOOD UREA NITROGEN 5 MG/DL (7-18); CALCIUM 8.5 MG/DL (8.5-10.1); CHLORIDE 107 MMOL/L (99-107); CREATININE 0.84 MG/DL (0.60-1.10); GLUCOSE 91 MG/DL (70-104); MAGNESIUM 2.2 MG/DL (1.5-2.4); SODIUM 143 MMOL/L (135-145); TOTAL CARBON DIOXIDE 26.8 MMOL/L (24-32); eGFR > 90 ML/MIN
[2019-06-19] MEDS ORDERED: pantoprazole 40mg Tablet.DR PO SCH (07:30)
[2019-06-19] MEDS ORDERED: enoxaparin 40mg/0.4ml syringe SQ SCH (08:00)
[2019-06-19] MEDS ORDERED: folic acid 1mg tablet PO SCH (08:00)
[2019-06-19] MEDS ORDERED: multivitamins, therapeutics tablet PO SCH (08:00)
[2019-06-19] MEDS ORDERED: K and/or MAG REPLACEMENT MC SCH (08:00)
[2019-06-19] MEDS ORDERED: thiamine 100mg tablet PO SCH (08:00)
[2019-06-19] MEDS: LORazepam 1 MG tablet PO PRN (08:10)
--- NOTE | 2019-06-19 09:06 | NUR ---
Pt reports feeling as if his throat is "clogged" when he exhales. Addendum: 06/19/19 at 0910 by Alyssa MONSON Amended: Links added.
[2019-06-19 10:00] VITALS: BP 127/48
--- NOTE | 2019-06-19 11:53 | NUR ---
Student documentation: I have reviewed all interventions, assessments performed and documented by Alyssa [place]. Student Medication Administration: For this medication-pass time frame, all medication were reviewed, dispensed, administered and documented per hospital policy by Alyssa [place].
--- NOTE | 2019-06-19 11:58 | NUR ---
Problems reprioritized. Patient report given, questions answered & plan of care reviewed with
--- NOTE | 2019-06-19 11:58 | NUR ---
Patient in room ORTHO 4011. I have received report from Criselda and had the opportunity to ask questions and assume patient care.
--- NOTE | 2019-06-19 13:48 | NUR ---
TC from RN: Pt reporting "gastric ulcer" and will not take certain foods. Pt current going through w/d positive for cocaine and hx etoh. Pt declined any diet preferences/intolerances during RD visit. Addendum: 06/19/19 at 1349 by Juan Antonio [address] Amended: Links added.
--- NOTE | 2019-06-19 15:33 | NUR ---
pt d/c with instructions, understanding of instructions and w/all belongings [facility]
== END 2019-06-19 15:30 | disposition home or self-care (01) | DRG 52 ==
LOC: ER 12:18 → ED HOLD 16:11 → ORTHO 4S 18:45
PROVIDERS: ADMIT Hospitalist; ATTEND Hospitalist
DX: G92 Toxic encephalopathy (principal); F10.231 Alcohol dependence with withdrawal delirium; E87.6 Hypokalemia; I49.9 Cardiac arrhythmia, unspecified; F41.9 Anxiety disorder, unspecified; M25.511 Pain in right shoulder; F12.90 Cannabis use, unspecified, uncomplicated; F14.90 Cocaine use, unspecified, uncomplicated; M62.838 Other muscle spasm; Z79.899 Other long term (current) drug therapy
CPT/HCPCS: 36415; 71045; 80048; 80053; 80305; 80320; 81003; 82948; 83735; 84484; 85025; 85610; 85730; 87081; 93005; 96361; 96374; 96375; 99285; G0378; J1650; J2060; J3411; J3475; J3480; J3490; J7030; J7060

== ENCOUNTER 2019-06-30 22:46 | Emergency (ER) | payer MEDICAID ==
[~2019-06-30] VITALS: Ht 167.6 cm; Wt 77.3 kg
[2019-06-30] MEDS ORDERED: normal saline 1000ml 1,000 ML IVB ONE (22:58)
[2019-06-30 23:43] LABS: ALANINE AMINOTRANSFERASE 18 U/L (12-78); ALBUMIN 4.2 G/DL (3.4-5.0); ALBUMIN/GLOBULIN RATIO 1.2 (1.1-1.5); ALKALINE PHOSPHATASE 91 IU/L (46-116); AMYLASE 46 U/L (25-115); ANION GAP 11 (8-16); ASPARTATE AMINO TRANSFERASE 12 U/L (10-37); BILIRUBIN,TOTAL 0.6 MG/DL (0.1-1.0); BLOOD UREA NITROGEN 5 MG/DL (7-18); BUN/CREATININE RATIO 5.4 (5.4-32.0); CALCIUM 9.1 MG/DL (8.5-10.1); CHLORIDE 104 MMOL/L (99-107); CREATININE 0.92 MG/DL (0.60-1.10); GLUCOSE 110 MG/DL (70-104); LIPASE 90 U/L (73-393); POTASSIUM 3.1 MMOL/L (3.5-5.1); SODIUM 142 MMOL/L (135-145); TOTAL CARBON DIOXIDE 27.2 MMOL/L (24-32); TOTAL PROTEIN 7.8 G/DL (6.4-8.2); eGFR > 90 ML/MIN
[2019-06-30] MEDS ORDERED: ondansetron/PF 4mg/2ml inj IV ONE (23:45)
[2019-06-30 23:47] LABS: BASOPHILS % (AUTO) 0.2 % (0-1); EOSINOPHILS # (AUTO) 0.1 X10'3 (0-0.9); EOSINOPHILS % (AUTO) 0.6 % (0-6); HEMATOCRIT 44.5 % (42.0-52.0); HEMOGLOBIN 15.5 g/dl (14.0-17.9); LYMPHOCYTES # (AUTO) 1.5 X10'3 (1.1-4.8); LYMPHOCYTES % (AUTO) 13.7 % (21-51); MEAN CORPUSCULAR HEMOGLOBIN 31.3 PG (27.0-31.0); MEAN CORPUSCULAR HGB CONC 34.9 g/dL (33.0-36.5); MEAN CORPUSCULAR VOLUME 89.7 FL (78-98); MEAN PLATELET VOLUME 7.7 FL (7.4-10.4); MONOCYTES # (AUTO) 0.6 X10'3 (0-0.9); NEUTROPHILS # (AUTO) 8.5 X10'3 (1.8-7.7); NEUTROPHILS % (AUTO) 79.5 % (42-75); PLATELET COUNT 293 X10'3 (140-440); RED BLOOD COUNT 4.96 X10'6 (4.70-6.10); RED CELL DISTRIBUTION WIDTH 13.2 % (11.5-14.5); WHITE BLOOD COUNT 10.8 X10'3 (4.5-11.0)
[2019-07-01] MEDS ORDERED: normal saline 1000ML IV soln IVB ONE (00:10)
[2019-07-01 00:53] LABS: URINE AMPHETAMINE SCREEN NEGATIVE (Neg); URINE BARBITUATE SCREEN NEGATIVE (Neg); URINE BENZODIAZEPINES SCREEN NEGATIVE (Neg); URINE CANNABINOID SCREEN POSITIVE (Neg); URINE COCAINE SCREEN NEGATIVE (Neg); URINE METHADONE SCREEN NEGATIVE (Neg); URINE OPIATE SCREEN NEGATIVE (Neg); URINE PHENCYCLIDINE SCREEN NEGATIVE (Neg)
[2019-07-01] MEDS ORDERED: potassium Cl 10 mEq/100mL bag IV ONE (01:00)
[2019-07-01] MEDS ORDERED: magnesium 2GM in 50ml NS 50 ML IV ONE (01:00)
[2019-07-01 01:13] LABS: CLARITY,URINE CLEAR (Clear); COLOR,URINE YELLOW (Yellow); GLUCOSE, URINE NEGATIVE (Neg); KETONES,URINE 40 mg/dl (Neg); LEUKOCYTE ESTERASE ,URINE NEGATIVE (Neg); NITRITES, URINE NEGATIVE (Neg); OCCULT BLOOD,URINE NEGATIVE (Neg); PH,URINE 7.5 (4.8-8.0); PROTEIN,URINE NEGATIVE (Neg); UROBILINOGEN,URINE 0.2 E.U/dL (0.2-1.0)
[2019-07-01 01:25] LABS: UA COLLECTION TYPE STRAIGHT CATH
[2019-07-01 02:19] VITALS: BP 104/49
[2019-07-01] MEDS ORDERED: ONDA4TAB6 PO (02:46)
== END 2019-07-01 02:58 | disposition home or self-care (01) ==
LOC: ER 22:46
DX: K29.00 Acute gastritis without bleeding (principal); E86.0 Dehydration; E87.6 Hypokalemia; F12.90 Cannabis use, unspecified, uncomplicated; Z79.899 Other long term (current) drug therapy; Z87.11 Personal history of peptic ulcer disease
CPT/HCPCS: 36415; 80053; 80305; 80320; 81003; 82150; 83690; 83735; 85025; 96361; 96365; 96366; 96368; 96375; 99283; J2405; J3475; J3480; J7030

== ENCOUNTER 2019-08-25 10:11 | Emergency (ER) | payer MEDICAID ==
[~2019-08-25] VITALS: Ht 170.2 cm; Wt 71.0 kg
[~2019-08-25 10:11] MED LIST changes: -ONDA4TAB12 PO; -ONDA8TAB13 PO; -ONDA8TAB6 PO; -PANT-47 PO; -PHE25R PR; -POTA-84 PO; -PROM25SU46 RC; -SUCR1TAB34 PO
[2019-08-25 10:48] VITALS: BP 118/71
[2019-08-25] MEDS ORDERED: BACDS PO (10:51)
[2019-08-25] MEDS ORDERED: IBUP-1984 PO (10:51)
[2019-08-25] MEDS ORDERED: CEPH250T PO (10:51)
== END 2019-08-25 10:58 | disposition home or self-care (01) ==
LOC: ER 10:11
DX: L03.114 Cellulitis of left upper limb (principal); F12.90 Cannabis use, unspecified, uncomplicated; Z79.2 Long term (current) use of antibiotics; Z79.899 Other long term (current) drug therapy
CPT/HCPCS: 99283

== ENCOUNTER 2019-08-28 19:31 | Inpatient (IN) | payer MEDICAID ==
[~2019-08-28] VITALS: Ht 167.6 cm; Wt 72.7 kg
[~2019-08-28 19:31] MED LIST changes: +BACDS PO; +CEPH250T PO; +IBUP-1984 PO
[2019-08-28] MEDS ORDERED: vancomycin/NS 1 GM ADD-VANTAGE 250 ML IV ONE (23:50)
[2019-08-28] MEDS ORDERED: CefTRIAXone 2gm/D5W 50ml 50 ML IV ONE (23:50)
[2019-08-28] MEDS ORDERED: normal saline 1000ML IV soln IV ONE (23:50)
[2019-08-29] MEDS: normal saline 1000ml 1,000 ML IV SCH ×2 (01:28→13:09)
[2019-08-29] MEDS ORDERED: magnesium hydroxide 30ml (MOM) UD suspension PO PRN (01:30)
[2019-08-29] MEDS ORDERED: ondansetron/PF 4mg/2ml inj IV PRN (01:30)
[2019-08-29] MEDS ORDERED: mag hydrox/Alum hydrox/simeth 30ml oral suspension PO PRN (01:30)
[2019-08-29] MEDS ORDERED: acetaminophen 325mg tablet PO PRN (01:30)
[2019-08-29 01:46] LABS: BASOPHILS % (AUTO) 0.4 % (0-1); EOSINOPHILS # (AUTO) 0.1 X10'3 (0-0.9); EOSINOPHILS % (AUTO) 0.9 % (0-6); HEMATOCRIT 41.5 % (42.0-52.0); HEMOGLOBIN 14.3 g/dl (14.0-17.9); LYMPHOCYTES # (AUTO) 1.5 X10'3 (1.1-4.8); LYMPHOCYTES % (AUTO) 21.6 % (21-51); MEAN CORPUSCULAR HEMOGLOBIN 30.7 PG (27.0-31.0); MEAN CORPUSCULAR HGB CONC 34.4 g/dL (33.0-36.5); MEAN CORPUSCULAR VOLUME 89.4 FL (78-98); MEAN PLATELET VOLUME 7.1 FL (7.4-10.4); MONOCYTES # (AUTO) 0.6 X10'3 (0-0.9); NEUTROPHILS # (AUTO) 4.8 X10'3 (1.8-7.7); NEUTROPHILS % (AUTO) 69.1 % (42-75); PLATELET COUNT 279 X10'3 (140-440); RED BLOOD COUNT 4.64 X10'6 (4.70-6.10); RED CELL DISTRIBUTION WIDTH 13.5 % (11.5-14.5); WHITE BLOOD COUNT 6.9 X10'3 (4.5-11.0)
[2019-08-29] MEDS: HYDROcodone/acetaminophen 10/325mg tab PO PRN ×5 (02:05→19:27)
[2019-08-29 02:09] LABS: ALANINE AMINOTRANSFERASE 54 U/L (12-78); ALBUMIN 3.8 G/DL (3.4-5.0); BLOOD UREA NITROGEN 10 MG/DL (7-18); CALCIUM 8.9 MG/DL (8.5-10.1); GLUCOSE 120 MG/DL (70-104); MAGNESIUM 2.1 MG/DL (1.5-2.4); eGFR > 90 ML/MIN
[2019-08-29 02:10] LABS: ALBUMIN/GLOBULIN RATIO 1.1 (1.1-1.5); ALKALINE PHOSPHATASE 87 IU/L (46-116); ANION GAP 8 (8-16); ASPARTATE AMINO TRANSFERASE 22 U/L (10-37); BILIRUBIN,TOTAL 0.6 MG/DL (0.1-1.0); CHLORIDE 105 MMOL/L (99-107); POTASSIUM 3.6 MMOL/L (3.5-5.1); SODIUM 139 MMOL/L (135-145); TOTAL CARBON DIOXIDE 26.3 MMOL/L (24-32); TOTAL PROTEIN 7.4 G/DL (6.4-8.2)
--- NOTE | 2019-08-29 03:14 | NUR ---
0250 RECEIVED PATIENT FROM ER INTO ROOM 4013B IN STABLE CONDITION WITH ALL BELONGINGS
[2019-08-29 03:22] VITALS: BP 129/65
[2019-08-29] MEDS ORDERED: IBUP-1984 PO (03:59)
[2019-08-29] MEDS ORDERED: SULF1TAB49 PO (04:02)
[2019-08-29] MEDS ORDERED: CEPH250C2 PO (04:15)
--- NOTE | 2019-08-29 05:59 | NUR ---
REPORT GIVEN TO DIYA OLIVEIRA
[2019-08-29 06:00] VITALS: BP 122/62
--- NOTE | 2019-08-29 06:43 | NUR ---
Patient in room ORTHO 4013. I have received report from Rita OLIVEIRA and had the opportunity to ask questions and assume patient care.
[2019-08-29] MEDS: VANCOMYCIN 1gm/H2O 200ml PB 200 ML IV SCH ×2 (07:32→15:24)
[2019-08-29 10:00] VITALS: BP 113/67
--- NOTE | 2019-08-29 12:53 | NUR ---
Brayan [id number] Re: Rey Johnson Can Pt eat?
[2019-08-29] MEDS ORDERED: gadobutrol 10mmol/10ml inj. IV ONE (14:19)
[2019-08-29 18:36] VITALS: BP 133/66
[2019-08-29 22:00] VITALS: BP 119/69
[2019-08-29] MEDS ORDERED: VANCOMYCIN LEVEL IV ONE (23:30)
--- NOTE | 2019-08-29 23:49 | NUR ---
resting w/o distress. vanco trough pending
[2019-08-30] MEDS: normal saline 1000ml 1,000 ML IV SCH ×4 (00:23→18:29)
[2019-08-30] MEDS: vancomycin/NS 1 GM ADD-VANTAGE 250 ML IV SCH ×2 (00:24→08:36)
[2019-08-30] MEDS: HYDROcodone/acetaminophen 5mg/325mg tablet PO PRN ×2 (00:27→16:00)
--- NOTE | 2019-08-30 01:00 | NUR ---
pt accidently drank peroxide that was on his table from earlier today. pushed fluids after swallowing. called poison control and MD. push fluids and medicate for nausea. if patient continues to vomit or any blood appears in emesis, re-contact poison control and will need to monitor for stomach burning.
--- NOTE | 2019-08-30 02:04 | NUR ---
pt sleeping, no more nausea noted
[2019-08-30] MEDS: HYDROcodone/acetaminophen 10/325mg tab PO PRN ×4 (04:41→20:30)
[2019-08-30 06:00] VITALS: BP 110/77
--- NOTE | 2019-08-30 06:28 | NUR ---
reported to days. noted pt not nauseous this am. norco given for pain control. may request d/c IVF
--- NOTE | 2019-08-30 06:43 | NUR ---
received Patient report from Michael OLIVEIRA.
[2019-08-30] MEDS: CefTRIAXone/D5W-Rocephin 1gm 50 ML IV SCH (07:23)
[2019-08-30 10:00] VITALS: BP 119/70
[2019-08-30 10:06] LABS: BASOPHILS % (AUTO) 0.5 % (0-1); EOSINOPHILS # (AUTO) 0.1 X10'3 (0-0.9); EOSINOPHILS % (AUTO) 1.2 % (0-6); HEMATOCRIT 43.4 % (42.0-52.0); HEMOGLOBIN 14.8 g/dl (14.0-17.9); LYMPHOCYTES # (AUTO) 1.3 X10'3 (1.1-4.8); LYMPHOCYTES % (AUTO) 24.4 % (21-51); MEAN CORPUSCULAR HEMOGLOBIN 29.9 PG (27.0-31.0); MEAN CORPUSCULAR VOLUME 88.1 FL (78-98); MONOCYTES # (AUTO) 0.5 X10'3 (0-0.9); MONOCYTES % (AUTO) 8.6 % (2-12); NEUTROPHILS # (AUTO) 3.5 X10'3 (1.8-7.7); NEUTROPHILS % (AUTO) 65.3 % (42-75); PLATELET COUNT 323 X10'3 (140-440); RED BLOOD COUNT 4.93 X10'6 (4.70-6.10); RED CELL DISTRIBUTION WIDTH 13.3 % (11.5-14.5); WHITE BLOOD COUNT 5.3 X10'3 (4.5-11.0)
[2019-08-30 10:29] VITALS: BP 115/85
[2019-08-30 10:46] LABS: ALANINE AMINOTRANSFERASE 51 U/L (12-78); ALBUMIN 3.6 G/DL (3.4-5.0); ALKALINE PHOSPHATASE 84 IU/L (46-116); ANION GAP 10 (8-16); ASPARTATE AMINO TRANSFERASE 17 U/L (10-37); BILIRUBIN,TOTAL 0.4 MG/DL (0.1-1.0); BLOOD UREA NITROGEN 4 MG/DL (7-18); BUN/CREATININE RATIO 5.2 (5.4-32.0); CALCIUM 8.5 MG/DL (8.5-10.1); CHLORIDE 106 MMOL/L (99-107); CREATININE 0.77 MG/DL (0.60-1.10); GLUCOSE 85 MG/DL (70-104); SODIUM 143 MMOL/L (135-145); TOTAL CARBON DIOXIDE 27.3 MMOL/L (24-32); TOTAL PROTEIN 7.3 G/DL (6.4-8.2); eGFR > 90 ML/MIN
[2019-08-30] MEDS: VANCOmycin 1250MG/NS 250ml Bag 250 ML IV SCH ×2 (13:36→20:32)
[2019-08-30] MEDS ORDERED: LIDOcaine 1% (10mg/ml) 2ml vial SQ ONE (15:40)
[2019-08-30 18:00] VITALS: BP 117/57
--- NOTE | 2019-08-30 18:25 | NUR ---
Problems reprioritized. Patient report given, questions answered & plan of care reviewed with Onelia OLIVEIRA.
--- NOTE | 2019-08-30 18:30 | NUR ---
Patient in room ORTHO 4013. I have received report from Brayan OLIVEIRA and had the opportunity to ask questions and assume patient care.
[2019-08-30 22:00] VITALS: BP 124/60
[2019-08-31] MEDS: HYDROcodone/acetaminophen 10/325mg tab PO PRN ×6 (01:06→23:01)
[2019-08-31] MEDS: VANCOmycin 1250MG/NS 250ml Bag 250 ML IV SCH ×2 (04:57→13:31)
[2019-08-31] MEDS: normal saline 1000ml 1,000 ML IV SCH ×2 (05:00→18:30)
[2019-08-31 06:00] VITALS: BP 128/73
--- NOTE | 2019-08-31 06:32 | NUR ---
Problems reprioritized. Patient report given, questions answered & plan of care reviewed with Brayan OLIVEIRA.
--- NOTE | 2019-08-31 06:41 | NUR ---
Patient in room ORTHO 4013. I have received report from Onelia OLIVEIRA and had the opportunity to ask questions and assume patient care.
[2019-08-31 07:14] LABS: BASOPHILS % (AUTO) 0.4 % (0-1); EOSINOPHILS # (AUTO) 0.1 X10'3 (0-0.9); EOSINOPHILS % (AUTO) 1.7 % (0-6); LYMPHOCYTES # (AUTO) 2.4 X10'3 (1.1-4.8); LYMPHOCYTES % (AUTO) 47.6 % (21-51); MEAN CORPUSCULAR HEMOGLOBIN 30.1 PG (27.0-31.0); MEAN CORPUSCULAR HGB CONC 34.1 g/dL (33.0-36.5); MEAN CORPUSCULAR VOLUME 88.1 FL (78-98); MONOCYTES # (AUTO) 0.5 X10'3 (0-0.9); MONOCYTES % (AUTO) 9.1 % (2-12); NEUTROPHILS # (AUTO) 2.1 X10'3 (1.8-7.7); NEUTROPHILS % (AUTO) 41.2 % (42-75); PLATELET COUNT 300 X10'3 (140-440); RED BLOOD COUNT 4.65 X10'6 (4.70-6.10); RED CELL DISTRIBUTION WIDTH 13.2 % (11.5-14.5); WHITE BLOOD COUNT 5.1 X10'3 (4.5-11.0)
[2019-08-31] MEDS: CefTRIAXone/D5W-Rocephin 1gm 50 ML IV SCH (07:19)
[2019-08-31 07:37] LABS: ALANINE AMINOTRANSFERASE 40 U/L (12-78); ALBUMIN 3.2 G/DL (3.4-5.0); ALKALINE PHOSPHATASE 79 IU/L (46-116); ANION GAP 7 (8-16); ASPARTATE AMINO TRANSFERASE 15 U/L (10-37); BILIRUBIN,TOTAL 0.4 MG/DL (0.1-1.0); BLOOD UREA NITROGEN 9 MG/DL (7-18); BUN/CREATININE RATIO 11.5 (5.4-32.0); CALCIUM 8.6 MG/DL (8.5-10.1); CHLORIDE 108 MMOL/L (99-107); CREATININE 0.78 MG/DL (0.60-1.10); GLUCOSE 89 MG/DL (70-104); POTASSIUM 3.9 MMOL/L (3.5-5.1); SODIUM 143 MMOL/L (135-145); TOTAL CARBON DIOXIDE 27.6 MMOL/L (24-32); TOTAL PROTEIN 6.5 G/DL (6.4-8.2); eGFR > 90 ML/MIN
[2019-08-31 10:00] VITALS: BP 113/57
[2019-08-31] MEDS ORDERED: VANCOMYCIN LEVEL IV ONE (12:30)
--- NOTE | 2019-08-31 18:18 | NUR ---
Problems reprioritized. Patient report given, questions answered & plan of care reviewed with Diamond OLIVEIRA.
[2019-08-31 19:00] VITALS: BP 130/77
[2019-08-31 22:00] VITALS: BP 121/69
[2019-09-01] MEDS: normal saline 1000ml 1,000 ML IV SCH (04:59)
[2019-09-01 06:32] LABS: BASOPHILS % (AUTO) 0.4 % (0-1); EOSINOPHILS # (AUTO) 0.1 X10'3 (0-0.9); EOSINOPHILS % (AUTO) 1.4 % (0-6); HEMATOCRIT 41.5 % (42.0-52.0); HEMOGLOBIN 14.2 g/dl (14.0-17.9); LYMPHOCYTES # (AUTO) 2.5 X10'3 (1.1-4.8); LYMPHOCYTES % (AUTO) 50.3 % (21-51); MEAN CORPUSCULAR HEMOGLOBIN 30.2 PG (27.0-31.0); MEAN CORPUSCULAR HGB CONC 34.3 g/dL (33.0-36.5); MONOCYTES # (AUTO) 0.4 X10'3 (0-0.9); MONOCYTES % (AUTO) 8.5 % (2-12); NEUTROPHILS # (AUTO) 1.9 X10'3 (1.8-7.7); NEUTROPHILS % (AUTO) 39.4 % (42-75); PLATELET COUNT 312 X10'3 (140-440); RED BLOOD COUNT 4.71 X10'6 (4.70-6.10); RED CELL DISTRIBUTION WIDTH 12.9 % (11.5-14.5); WHITE BLOOD COUNT 4.9 X10'3 (4.5-11.0)
--- NOTE | 2019-09-01 06:42 | NUR ---
Problems reprioritized. Patient report given, questions answered & plan of care reviewed with TEE Penn.
[2019-09-01 06:53] LABS: ALANINE AMINOTRANSFERASE 36 U/L (12-78); ALBUMIN 3.4 G/DL (3.4-5.0); ALKALINE PHOSPHATASE 78 IU/L (46-116); ANION GAP 7 (8-16); ASPARTATE AMINO TRANSFERASE 17 U/L (10-37); BILIRUBIN,TOTAL 0.3 MG/DL (0.1-1.0); BLOOD UREA NITROGEN 7 MG/DL (7-18); BUN/CREATININE RATIO 8.4 (5.4-32.0); CALCIUM 8.7 MG/DL (8.5-10.1); CHLORIDE 107 MMOL/L (99-107); CREATININE 0.83 MG/DL (0.60-1.10); GLUCOSE 79 MG/DL (70-104); POTASSIUM 3.7 MMOL/L (3.5-5.1); SODIUM 142 MMOL/L (135-145); TOTAL CARBON DIOXIDE 27.8 MMOL/L (24-32); TOTAL PROTEIN 6.9 G/DL (6.4-8.2); eGFR > 90 ML/MIN
--- NOTE | 2019-09-01 06:57 | NUR ---
Patient in room ORTHO 4013. I have received report from Diamond OLIVEIRA and had the opportunity to ask questions and assume patient care.
[2019-09-01] MEDS: HYDROcodone/acetaminophen 10/325mg tab PO PRN (08:33)
[2019-09-01] MEDS: CefTRIAXone/D5W-Rocephin 1gm 50 ML IV SCH (08:34)
[2019-09-01 10:00] VITALS: BP 144/67
[2019-09-01] MEDS ORDERED: CEPH500C5 PO (11:02)
--- NOTE | 2019-09-01 12:10 | NUR ---
Pt remained stable. IV d/amador and there was no s/s of complications. All discharge instructions were given to pt and he stated understanding. He will [facility] be [facility] and he was given all the informations and phone numbers for them. Medications sent electronically to his pharmacy [facility] on [address]. All belongings accounted for. He was escorted to door where a friend who they stated lived close and were walking to his house. Pt stated a friend had taken his car home from the ER parking lot for him.
[2019-09-01] MEDS ORDERED: lactobacillus rhamnosus 10,000 MMU CELLS/CAPSULE PO SCH (20:00)
[2019-09-01] MEDS ORDERED: VANCOMYCIN LEVEL IV ONE (20:30)
== END 2019-09-01 12:15 | disposition home or self-care (01) | DRG 383 ==
LOC: ER 19:31 → ED HOLD 08-29 01:57 → ORTHO 4S 08-29 02:35
PROVIDERS: ADMIT Internal Medicine; ATTEND Family Medicine
PROC: 0H9GXZZ Drainage of Left Hand Skin, External Approach (ICD-10-PCS; principal; 2019-08-30)
DX: L02.512 Cutaneous abscess of left hand (principal); F12.90 Cannabis use, unspecified, uncomplicated; L03.114 Cellulitis of left upper limb; S60.222A Contusion of left hand, initial encounter; B95.62 Methicillin resistant Staphylococcus aureus infection as the cause of diseases classified elsewhere; S60.00XA Contusion of unspecified finger without damage to nail, initial encounter; W01.0XXA Fall on same level from slipping, tripping and stumbling without subsequent striking against object, initial encounter; Y93.K1 Activity, walking an animal; Y92.89 Other specified places as the place of occurrence of the external cause; Z87.11 Personal history of peptic ulcer disease; Z79.899 Other long term (current) drug therapy
CPT/HCPCS: 36415; 73130; 73220; 80053; 80202; 83605; 83735; 84145; 85025; 87040; 87070; 87077; 87081; 87186; 93005; 96365; 99285; A9585; G0378; J0696; J2001; J2405; J3370; J7030

== ENCOUNTER 2019-11-13 07:11 | Emergency (ER) | payer MEDICAID ==
[~2019-11-13] VITALS: Ht 167.6 cm; Wt 77.3 kg
[~2019-11-13 07:11] MED LIST changes: -BACDS PO; -CEPH250T PO; +CEPH500C5 PO; -ONDA4TAB6 PO; +SULF1TAB49 PO
[2019-11-13] MEDS ORDERED: normal saline 1000ML IV soln IVB ONE (08:30)
[2019-11-13] MEDS ORDERED: haloperidol lactate 5mg/ml inj IM ONE (08:30)
[2019-11-13] MEDS ORDERED: ondansetron/PF 4mg/2ml inj IV ONE (08:30)
[2019-11-13] MEDS ORDERED: diphenhydrAMINE 50 mg/ml inj IV ONE (08:30)
[2019-11-13 08:54] LABS: BASOPHILS % (AUTO) 0.3 % (0-1); EOSINOPHILS % (AUTO) 0.2 % (0-6); HEMATOCRIT 44.9 % (42.0-52.0); HEMOGLOBIN 15.1 g/dl (14.0-17.9); LYMPHOCYTES # (AUTO) 1.1 X10'3 (1.1-4.8); MEAN CORPUSCULAR HEMOGLOBIN 29.6 PG (27.0-31.0); MEAN CORPUSCULAR HGB CONC 33.7 g/dL (33.0-36.5); MEAN CORPUSCULAR VOLUME 87.9 FL (78-98); MEAN PLATELET VOLUME 7.1 FL (7.4-10.4); MONOCYTES # (AUTO) 0.4 X10'3 (0-0.9); MONOCYTES % (AUTO) 3.7 % (2-12); NEUTROPHILS # (AUTO) 10.5 X10'3 (1.8-7.7); NEUTROPHILS % (AUTO) 86.8 % (42-75); PLATELET COUNT 262 X10'3 (140-440); RED BLOOD COUNT 5.11 X10'6 (4.70-6.10); RED CELL DISTRIBUTION WIDTH 13.9 % (11.5-14.5); WHITE BLOOD COUNT 12.1 X10'3 (4.5-11.0)
[2019-11-13 09:16] LABS: ALANINE AMINOTRANSFERASE 28 U/L (12-78); ALBUMIN 4.2 G/DL (3.4-5.0); ALBUMIN/GLOBULIN RATIO 1.2 (1.1-1.5); ALKALINE PHOSPHATASE 73 IU/L (46-116); ANION GAP 10 (8-16); ASPARTATE AMINO TRANSFERASE 21 U/L (10-37); BILIRUBIN,TOTAL 0.5 MG/DL (0.1-1.0); BLOOD UREA NITROGEN 7 MG/DL (7-18); BUN/CREATININE RATIO 7.8 (5.4-32.0); CALCIUM 8.8 MG/DL (8.5-10.1); CHLORIDE 106 MMOL/L (99-107); GLUCOSE 126 MG/DL (70-104); LIPASE 107 U/L (73-393); POTASSIUM 3.6 MMOL/L (3.5-5.1); SODIUM 141 MMOL/L (135-145); TOTAL CARBON DIOXIDE 25.4 MMOL/L (24-32); TOTAL PROTEIN 7.6 G/DL (6.4-8.2); eGFR > 90 ML/MIN
[2019-11-13] MEDS ORDERED: ONDA4TAB6 PO (10:05)
[2019-11-13 10:25] VITALS: BP 122/48
[2019-11-14] MEDS ORDERED: BENZ1TAB7 PO (13:00)
[2019-11-14] MEDS ORDERED: NO HOME MEDS (17:55)
== END 2019-11-13 10:34 | disposition home or self-care (01) ==
LOC: ER 07:12
DX: K29.70 Gastritis, unspecified, without bleeding (principal); R11.15 Cyclical vomiting syndrome unrelated to migraine; F12.90 Cannabis use, unspecified, uncomplicated; Z72.89 Other problems related to lifestyle; Z79.899 Other long term (current) drug therapy
CPT/HCPCS: 36415; 80053; 83690; 85025; 96361; 96372; 96374; 96375; 99284; J1200; J1630; J2405; J7030

== ENCOUNTER 2019-11-14 08:25 | Inpatient (IN) | payer MEDICAID ==
[~2019-11-14] VITALS: Ht 167.6 cm; Wt 77.3 kg
[~2019-11-14 08:25] MED LIST changes: +ONDA4TAB6 PO
[2019-11-14] MEDS ORDERED: magnesium 2GM in 50ml NS 50 ML IV ONE (08:30)
[2019-11-14] MEDS ORDERED: haloperidol lactate 5mg/ml inj IM ONE ×2 (08:30→09:05)
[2019-11-14] MEDS ORDERED: normal saline 1000ML IV soln IVB ONE ×2 (08:30→09:45)
[2019-11-14 09:09] LABS: BASOPHILS % (AUTO) 0.2 % (0-1); EOSINOPHILS % (AUTO) 0.2 % (0-6); HEMATOCRIT 47.7 % (42.0-52.0); HEMOGLOBIN 15.6 g/dl (14.0-17.9); LYMPHOCYTES # (AUTO) 3.8 X10'3 (1.1-4.8); LYMPHOCYTES % (AUTO) 35.9 % (21-51); MEAN CORPUSCULAR HEMOGLOBIN 29.8 PG (27.0-31.0); MEAN CORPUSCULAR HGB CONC 32.8 g/dL (33.0-36.5); MEAN PLATELET VOLUME 7.5 FL (7.4-10.4); MONOCYTES # (AUTO) 0.4 X10'3 (0-0.9); MONOCYTES % (AUTO) 4.1 % (2-12); NEUTROPHILS # (AUTO) 6.3 X10'3 (1.8-7.7); NEUTROPHILS % (AUTO) 59.6 % (42-75); PLATELET COUNT 340 X10'3 (140-440); RED BLOOD COUNT 5.24 X10'6 (4.70-6.10); RED CELL DISTRIBUTION WIDTH 13.8 % (11.5-14.5); WHITE BLOOD COUNT 10.6 X10'3 (4.5-11.0)
[2019-11-14 09:35] LABS: ALANINE AMINOTRANSFERASE 36 U/L (12-78); ALBUMIN 4.4 G/DL (3.4-5.0); ALBUMIN/GLOBULIN RATIO 1.2 (1.1-1.5); ALKALINE PHOSPHATASE 80 IU/L (46-116); ANION GAP 24 (8-16); ASPARTATE AMINO TRANSFERASE 27 U/L (10-37); BILIRUBIN,TOTAL 0.9 MG/DL (0.1-1.0); BLOOD UREA NITROGEN 9 MG/DL (7-18); BUN/CREATININE RATIO 6.9 (5.4-32.0); CALCIUM 9.6 MG/DL (8.5-10.1); CHLORIDE 108 MMOL/L (99-107); CREATININE 1.31 MG/DL (0.60-1.10); ETHANOL < 0.010 GM/DL (0.0-0.010); GLUCOSE 182 MG/DL (70-104); LIPASE 97 U/L (73-393); MAGNESIUM 2.9 MG/DL (1.5-2.4); POTASSIUM 4.3 MMOL/L (3.5-5.1); SODIUM 147 MMOL/L (135-145); TOTAL CARBON DIOXIDE 15.5 MMOL/L (24-32); TOTAL PROTEIN 8.1 G/DL (6.4-8.2); eGFR 68 ML/MIN
[2019-11-14] MEDS ORDERED: ketorolac trometh. 30mg/ml inj. IV ONE (09:45)
[2019-11-14] MEDS: LORazepam 2 mg/ml vial IV ONE ×2 (09:58→10:12)
[2019-11-14] MEDS ORDERED: benztropine 1mg tablet PO SCH (10:05)
[2019-11-14] MEDS ORDERED: benztropine 1mg tablet PO ONE (10:10)
[2019-11-14] MEDS ORDERED: diphenhydrAMINE 50 mg/ml inj IM ONE (10:25)
[2019-11-14] MEDS ORDERED: BENZ1TAB7 PO (13:00)
--- NOTE | 2019-11-14 14:45 | NUR ---
Discussed pt's status with EDMD Majano as pt reverting to increased hr and diaphorisis upon waking in preparation for dc. Per ashley majano, pt to be admitted.
[2019-11-14] MEDS ORDERED: LORazepam 2 mg/ml vial IV ONE (14:55)
[2019-11-14] MEDS ORDERED: potassium Cl 20 mEq SR tablet PO PRN ×2 (15:30)
[2019-11-14] MEDS ORDERED: LORazepam 2 mg/ml vial IV PRN (15:30)
[2019-11-14] MEDS ORDERED: magnesium 2GM in 50ml NS 50 ML IV PRN (15:30)
[2019-11-14] MEDS ORDERED: cyclobenzaprine 10mg tablet PO PRN (15:30)
[2019-11-14] MEDS ORDERED: LORazepam 1 MG tablet PO PRN (15:30)
[2019-11-14] MEDS ORDERED: magnesium 4gm in 100ml NS 100 ML IV PRN (15:30)
[2019-11-14] MEDS ORDERED: acetaminophen 325mg tablet PO PRN ×2 (15:30)
[2019-11-14] MEDS ORDERED: magnesium Cl slow-release 64mg tablet PO PRN (15:30)
[2019-11-14] MEDS ORDERED: potassium CL 10mEq/100ml bag 100 ML IV PRN ×2 (15:30)
[2019-11-14] MEDS ORDERED: ondansetron/PF 4mg/2ml inj IV PRN (15:30)
[2019-11-14] MEDS ORDERED: HYDROcodone/acetaminophen 5mg/325mg tablet PO PRN (15:30)
[2019-11-14] MEDS ORDERED: morphine 2 MG/ML inj. syringe IV PRN (15:30)
[2019-11-14] MEDS ORDERED: magnesium hydroxide 30ml (MOM) UD suspension PO PRN (15:30)
[2019-11-14] MEDS: normal saline 1000ml 1,000 ML IV SCH (16:18)
[2019-11-14] MEDS ORDERED: NO HOME MEDS (17:55)
[2019-11-14 18:10] LABS: CLARITY,URINE CLEAR (Clear); COLOR,URINE YELLOW (Yellow); GLUCOSE, URINE NEGATIVE (Neg); KETONES,URINE TRACE mg/dl (Neg); LEUKOCYTE ESTERASE ,URINE NEGATIVE (Neg); NITRITES, URINE NEGATIVE (Neg); OCCULT BLOOD,URINE NEGATIVE (Neg); PH,URINE 6.5 (4.8-8.0); PROTEIN,URINE TRACE mg/dl (Neg); UROBILINOGEN,URINE 0.2 E.U/dL (0.2-1.0)
--- NOTE | 2019-11-14 18:10 | NUR ---
tried to call report to certified surgical tech/first assistant pt has in room assignment for 346A, rn is unavaliable and will call back in 10 min
[2019-11-14 18:15] LABS: UA COLLECTION TYPE CLN CATCH MIDSTREAM
[2019-11-14 18:21] LABS: BACTERIA,URINE NONE SEEN /HPF (Neg); RBC,URINE NONE SEEN /HPF (0-2); SQUAMOUS EPITHELIAL CELL,UR FEW /LPF (FEW); WBC,URINE 0-4 /HPF (0-4)
[2019-11-14 19:00] VITALS: BP 109/54
[2019-11-14 19:00] LABS: CREATINE KINASE 725 U/L (39-308); MYOGLOBIN 305 ng/ml (16-96)
--- NOTE | 2019-11-14 19:00 | NUR ---
report received from Alexandro OLIVEIRA in ER. Patient arrived on the floor sleepy but easily aroused. He followed commands and he has been resting with no sign of discomfort.
[2019-11-14] MEDS: K and/or MAG REPLACEMENT MC SCH (19:22)
[2019-11-14] MEDS: docusate sod 100mg capsule PO SCH (20:17)
[2019-11-14] MEDS: heparin, porcine 5000 units/ml vial SQ SCH (20:18)
[2019-11-14 23:30] VITALS: BP 100/56
[2019-11-15] MEDS: normal saline 1000ml 1,000 ML IV SCH ×4 (01:29→16:36)
[2019-11-15 05:50] VITALS: BP 114/69
[2019-11-15 06:07] LABS: BASOPHILS % (AUTO) 0.1 % (0-1); EOSINOPHILS % (AUTO) 0.1 % (0-6); HEMATOCRIT 39.8 % (42.0-52.0); HEMOGLOBIN 13.3 g/dl (14.0-17.9); LYMPHOCYTES # (AUTO) 1.5 X10'3 (1.1-4.8); LYMPHOCYTES % (AUTO) 13.1 % (21-51); MEAN CORPUSCULAR HEMOGLOBIN 30.1 PG (27.0-31.0); MEAN CORPUSCULAR HGB CONC 33.4 g/dL (33.0-36.5); MEAN CORPUSCULAR VOLUME 90.1 FL (78-98); MEAN PLATELET VOLUME 7.5 FL (7.4-10.4); MONOCYTES # (AUTO) 1.1 X10'3 (0-0.9); NEUTROPHILS # (AUTO) 8.5 X10'3 (1.8-7.7); NEUTROPHILS % (AUTO) 76.7 % (42-75); PLATELET COUNT 213 X10'3 (140-440); RED BLOOD COUNT 4.41 X10'6 (4.70-6.10); RED CELL DISTRIBUTION WIDTH 13.6 % (11.5-14.5); WHITE BLOOD COUNT 11.1 X10'3 (4.5-11.0)
[2019-11-15 06:19] LABS: ALANINE AMINOTRANSFERASE 23 U/L (12-78); ALBUMIN 3.4 G/DL (3.4-5.0); ALBUMIN/GLOBULIN RATIO 1.2 (1.1-1.5); ALKALINE PHOSPHATASE 62 IU/L (46-116); ANION GAP 9 (8-16); ASPARTATE AMINO TRANSFERASE 35 U/L (10-37); BILIRUBIN,TOTAL 0.7 MG/DL (0.1-1.0); BLOOD UREA NITROGEN 15 MG/DL (7-18); BUN/CREATININE RATIO 8.5 (5.4-32.0); CALCIUM 8.3 MG/DL (8.5-10.1); CHLORIDE 107 MMOL/L (99-107); CREATININE 1.76 MG/DL (0.60-1.10); GLUCOSE 89 MG/DL (70-104); MAGNESIUM 2.5 MG/DL (1.5-2.4); POTASSIUM 3.8 MMOL/L (3.5-5.1); SODIUM 142 MMOL/L (135-145); TOTAL CARBON DIOXIDE 26.1 MMOL/L (24-32); TOTAL PROTEIN 6.3 G/DL (6.4-8.2); eGFR 49 ML/MIN
--- NOTE | 2019-11-15 06:27 | NUR ---
Patient in room YOLANDA 346. I have received report from Neli OLIVEIRA and had the opportunity to ask questions and assume patient care.Patient resting with eyes closed
--- NOTE | 2019-11-15 06:39 | NUR ---
Problems reprioritized. Patient report given, questions answered & plan of care reviewed with Laura OLIVEIRA.
[2019-11-15 07:00] VITALS: BP 129/58
[2019-11-15] MEDS ORDERED: pantoprazole 40mg Tablet.DR PO SCH (07:30)
[2019-11-15] MEDS ORDERED: atenolol 25mg tablet PO SCH (08:00)
[2019-11-15] MEDS: docusate sod 100mg capsule PO SCH (08:00)
[2019-11-15] MEDS: K and/or MAG REPLACEMENT MC SCH (08:00)
[2019-11-15] MEDS: heparin, porcine 5000 units/ml vial SQ SCH (08:02)
[2019-11-15] MEDS ORDERED: sertraline 25mg tablet PO SCH (10:10)
[2019-11-15 11:00] VITALS: BP 120/64
--- NOTE | 2019-11-15 11:15 | NUR ---
Received a call from Tele that patients heart rate went to 40. Current vitals 109/[address] Portillo on the floor patient asymptomatic. Received orders to DC atenonol
--- NOTE | 2019-11-15 12:17 | NUR ---
PAGER ID: [phone] MESSAGE: Laura Surg [phone] Re: Elizabeth 346A please call re: did you want us to continue neuro check? also social and political studies professor would like a tox screen on patient.
[2019-11-15 13:43] LABS: BASOPHILS % (AUTO) 0.2 % (0-1); EOSINOPHILS % (AUTO) 0.1 % (0-6); HEMATOCRIT 38.7 % (42.0-52.0); HEMOGLOBIN 12.8 g/dl (14.0-17.9); LYMPHOCYTES # (AUTO) 1.8 X10'3 (1.1-4.8); LYMPHOCYTES % (AUTO) 18.7 % (21-51); MEAN CORPUSCULAR HEMOGLOBIN 29.6 PG (27.0-31.0); MEAN CORPUSCULAR HGB CONC 33.1 g/dL (33.0-36.5); MEAN CORPUSCULAR VOLUME 89.5 FL (78-98); MEAN PLATELET VOLUME 7.5 FL (7.4-10.4); MONOCYTES % (AUTO) 10.1 % (2-12); NEUTROPHILS # (AUTO) 6.8 X10'3 (1.8-7.7); NEUTROPHILS % (AUTO) 70.9 % (42-75); PLATELET COUNT 208 X10'3 (140-440); RED BLOOD COUNT 4.32 X10'6 (4.70-6.10); RED CELL DISTRIBUTION WIDTH 13.7 % (11.5-14.5); WHITE BLOOD COUNT 9.5 X10'3 (4.5-11.0)
[2019-11-15 13:52] LABS: ALBUMIN 2.3 G/DL (3.4-5.0); ANION GAP 9 (8-16); BLOOD UREA NITROGEN 13 MG/DL (7-18); BUN/CREATININE RATIO 7.8 (5.4-32.0); CALCIUM 8.1 MG/DL (8.5-10.1); CHLORIDE 110 MMOL/L (99-107); CREATININE 1.67 MG/DL (0.60-1.10); GLUCOSE 95 MG/DL (70-104); POTASSIUM 3.7 MMOL/L (3.5-5.1); SODIUM 142 MMOL/L (135-145); TOTAL CARBON DIOXIDE 22.6 MMOL/L (24-32); eGFR 52 ML/MIN
[2019-11-15 14:28] LABS: URINE AMPHETAMINE SCREEN NEGATIVE (Neg); URINE BARBITUATE SCREEN NEGATIVE (Neg); URINE BENZODIAZEPINES SCREEN NEGATIVE (Neg); URINE CANNABINOID SCREEN POSITIVE (Neg); URINE COCAINE SCREEN NEGATIVE (Neg); URINE METHADONE SCREEN NEGATIVE (Neg); URINE OPIATE SCREEN POSITIVE (Neg); URINE PHENCYCLIDINE SCREEN NEGATIVE (Neg)
--- NOTE | 2019-11-15 14:40 | NUR ---
Malnutrition consult: Patient's scaled weight hx ranges 68-73 kg from October 2018-May 2019, current pt stated wt is 77.27 kg which is stable with stated weight in June 2019. Pt admitted with AMS and presented with c/o nausea with 6 episodes of vomiting and abdominal pain. Pt currently on a clear liquid diet documented with 100% PO intake first meal. Pt with no documented decrease in muscle strength or edema. Pt currently does not meet criteria for malnutrition. Will continue to follow. Addendum: 11/15/19 at [address] Amended: Links added.
[2019-11-15] MEDS ORDERED: SERT25TA5 PO (16:41)
--- NOTE | 2019-11-15 17:00 | NUR ---
Patients discharge instructions reviewed with patient by Resource TEE Eaton. Per Uma OLIVEIRA patients IV dc'd cannula intact. Tele monitor Dc'd Patient was taken to to friends vehicle in parking lot. Patient states he has all his belongings
== END 2019-11-15 17:15 | disposition home or self-care (01) | DRG 422 ==
LOC: ER 08:26 → ED HOLD 15:29 → SUR 3N 19:06
PROVIDERS: ADMIT Internal Medicine; ATTEND Internal Medicine
DX: E86.0 Dehydration (principal); E87.0 Hyperosmolality and hypernatremia; F41.8 Other specified anxiety disorders; F12.10 Cannabis abuse, uncomplicated; N28.9 Disorder of kidney and ureter, unspecified; Z87.11 Personal history of peptic ulcer disease; Z72.89 Other problems related to lifestyle
CPT/HCPCS: 36415; 80048; 80053; 80305; 80320; 81001; 82550; 83690; 83735; 83874; 85025; 87081; 99285; G0378; J1200; J1630; J1644; J2060; J3475; J7030

== ENCOUNTER 2019-11-26 23:38 | Emergency (ER) | payer MEDICAID ==
[~2019-11-26] VITALS: Ht 167.6 cm; Wt 72.7 kg
[~2019-11-26 23:38] MED LIST changes: -CEPH500C5 PO; -IBUP-1984 PO; -ONDA4TAB6 PO; +SERT25TA5 PO; -SULF1TAB49 PO
[2019-11-26] MEDS ORDERED: ondansetron/PF 4mg/2ml inj IV ONE (23:55)
[2019-11-26] MEDS ORDERED: LORazepam 2 mg/ml vial IV ONE (23:55)
[2019-11-26] MEDS ORDERED: normal saline 1000ML IV soln IVB ONE (23:55)
[2019-11-27 00:04] LABS: BASOPHILS % (AUTO) 0.4 % (0-1); EOSINOPHILS % (AUTO) 0.1 % (0-6); HEMATOCRIT 42.7 % (42.0-52.0); HEMOGLOBIN 14.6 g/dl (14.0-17.9); LYMPHOCYTES % (AUTO) 29.4 % (21-51); MEAN CORPUSCULAR HEMOGLOBIN 30.2 PG (27.0-31.0); MEAN CORPUSCULAR HGB CONC 34.2 g/dL (33.0-36.5); MEAN CORPUSCULAR VOLUME 88.3 FL (78-98); MEAN PLATELET VOLUME 7.2 FL (7.4-10.4); MONOCYTES # (AUTO) 0.5 X10'3 (0-0.9); MONOCYTES % (AUTO) 4.8 % (2-12); NEUTROPHILS # (AUTO) 6.6 X10'3 (1.8-7.7); NEUTROPHILS % (AUTO) 65.3 % (42-75); PLATELET COUNT 314 X10'3 (140-440); RED BLOOD COUNT 4.84 X10'6 (4.70-6.10); RED CELL DISTRIBUTION WIDTH 13.2 % (11.5-14.5)
[2019-11-27 00:16] LABS: ALANINE AMINOTRANSFERASE 37 U/L (12-78); ALBUMIN 4.2 G/DL (3.4-5.0); ALBUMIN/GLOBULIN RATIO 1.2 (1.1-1.5); ALKALINE PHOSPHATASE 78 IU/L (46-116); ANION GAP 9 (8-16); ASPARTATE AMINO TRANSFERASE 17 U/L (10-37); BILIRUBIN,TOTAL 0.8 MG/DL (0.1-1.0); BLOOD UREA NITROGEN 6 MG/DL (7-18); BUN/CREATININE RATIO 6.1 (5.4-32.0); CALCIUM 9.2 MG/DL (8.5-10.1); CHLORIDE 102 MMOL/L (99-107); CREATININE 0.98 MG/DL (0.60-1.10); GLUCOSE 119 MG/DL (70-104); LIPASE 79 U/L (73-393); POTASSIUM 3.2 MMOL/L (3.5-5.1); SODIUM 139 MMOL/L (135-145); TOTAL CARBON DIOXIDE 27.9 MMOL/L (24-32); TOTAL PROTEIN 7.7 G/DL (6.4-8.2); eGFR > 90 ML/MIN
[2019-11-27] MEDS ORDERED: PROM12.512 PO (00:37)
[2019-11-27 00:39] LABS: CLARITY,URINE CLOUDY (Clear); COLOR,URINE YELLOW (Yellow); GLUCOSE, URINE NEGATIVE (Neg); KETONES,URINE TRACE mg/dl (Neg); LEUKOCYTE ESTERASE ,URINE NEGATIVE (Neg); NITRITES, URINE NEGATIVE (Neg); OCCULT BLOOD,URINE NEGATIVE (Neg); PH,URINE 8.5 (4.8-8.0); PROTEIN,URINE TRACE mg/dl (Neg)
[2019-11-27 00:44] LABS: UA COLLECTION TYPE URINAL
[2019-11-27 00:46] LABS: BACTERIA,URINE NONE SEEN /HPF (Neg); RBC,URINE NONE SEEN /HPF (0-2); WBC,URINE NONE SEEN /HPF (0-4)
[2019-11-27 00:47] LABS: AMORPHOUS PHOSPHATES 4+; MUCUS STRANDS MODERATE /LPF (Neg); SQUAMOUS EPITHELIAL CELL,UR MODERATE /LPF (FEW)
[2019-11-27 00:49] VITALS: BP 133/59
== END 2019-11-27 00:50 | disposition home or self-care (01) ==
LOC: ER 23:39
DX: R11.2 Nausea with vomiting, unspecified (principal); R19.7 Diarrhea, unspecified; F12.90 Cannabis use, unspecified, uncomplicated; Z79.899 Other long term (current) drug therapy
CPT/HCPCS: 36415; 80053; 81001; 83690; 85025; 96361; 96374; 96375; 99284; J2060; J2405; J7030

== ENCOUNTER 2019-12-01 08:40 | Emergency (ER) | payer MEDICAID ==
[~2019-12-01] VITALS: Ht 167.6 cm; Wt 80.0 kg
[~2019-12-01 08:40] MED LIST changes: +PROM12.512 PO
[2019-12-01 08:41] VITALS: BP 150/85
[2019-12-01 09:23] LABS: BASOPHILS % (AUTO) 0.1 % (0-1); EOSINOPHILS % (AUTO) 0.1 % (0-6); HEMATOCRIT 43.2 % (42.0-52.0); HEMOGLOBIN 14.5 g/dl (14.0-17.9); LYMPHOCYTES # (AUTO) 1.1 X10'3 (1.1-4.8); MEAN CORPUSCULAR HEMOGLOBIN 29.5 PG (27.0-31.0); MEAN CORPUSCULAR HGB CONC 33.6 g/dL (33.0-36.5); MEAN PLATELET VOLUME 7.5 FL (7.4-10.4); MONOCYTES # (AUTO) 0.4 X10'3 (0-0.9); MONOCYTES % (AUTO) 3.5 % (2-12); NEUTROPHILS # (AUTO) 10.6 X10'3 (1.8-7.7); NEUTROPHILS % (AUTO) 87.3 % (42-75); PLATELET COUNT 294 X10'3 (140-440); RED BLOOD COUNT 4.91 X10'6 (4.70-6.10); RED CELL DISTRIBUTION WIDTH 13.4 % (11.5-14.5); WHITE BLOOD COUNT 12.2 X10'3 (4.5-11.0)
[2019-12-01 09:33] LABS: ALANINE AMINOTRANSFERASE 30 U/L (12-78); ALBUMIN 4.4 G/DL (3.4-5.0); ALBUMIN/GLOBULIN RATIO 1.3 (1.1-1.5); ALKALINE PHOSPHATASE 72 IU/L (46-116); AMYLASE 48 U/L (25-115); ANION GAP 7 (8-16); ASPARTATE AMINO TRANSFERASE 19 U/L (10-37); BILIRUBIN,TOTAL 0.5 MG/DL (0.1-1.0); BLOOD UREA NITROGEN 7 MG/DL (7-18); BUN/CREATININE RATIO 7.8 (5.4-32.0); CALCIUM 9.1 MG/DL (8.5-10.1); CHLORIDE 104 MMOL/L (99-107); GLUCOSE 129 MG/DL (70-104); LIPASE 94 U/L (73-393); POTASSIUM 3.5 MMOL/L (3.5-5.1); SODIUM 142 MMOL/L (135-145); TOTAL CARBON DIOXIDE 30.8 MMOL/L (24-32); TOTAL PROTEIN 7.8 G/DL (6.4-8.2); eGFR > 90 ML/MIN
[2019-12-01] MEDS ORDERED: LORazepam 2 mg/ml vial IV ONE (10:00)
[2019-12-01] MEDS ORDERED: ondansetron/PF 4mg/2ml inj IV ONE (10:00)
[2019-12-01] MEDS ORDERED: normal saline 1000ml 1,000 ML IV ONE (10:00)
[2019-12-01] MEDS ORDERED: ONDA4TAB6 PO (11:38)
== END 2019-12-01 11:47 | disposition home or self-care (01) ==
LOC: ER 08:41
DX: R11.2 Nausea with vomiting, unspecified (principal); R10.84 Generalized abdominal pain; F12.90 Cannabis use, unspecified, uncomplicated; Z72.89 Other problems related to lifestyle; Z79.899 Other long term (current) drug therapy
CPT/HCPCS: 36415; 80053; 82150; 83690; 85025; 96361; 96374; 96375; 99284; J2060; J2405; J7030

== ENCOUNTER 2019-12-27 12:03 | Emergency (ER) | payer MEDICAID ==
[~2019-12-27] VITALS: Ht 167.6 cm; Wt 72.0 kg
[~2019-12-27 12:03] MED LIST changes: +ONDA4TAB6 PO
[2019-12-27 13:13] LABS: BASOPHILS % (AUTO) 0.3 % (0-1); EOSINOPHILS % (AUTO) 0 % (0-6); HEMATOCRIT 44.3 % (42.0-52.0); HEMOGLOBIN 14.9 g/dl (14.0-17.9); LYMPHOCYTES # (AUTO) 1.5 X10'3 (1.1-4.8); LYMPHOCYTES % (AUTO) 11.1 % (21-51); MEAN CORPUSCULAR HEMOGLOBIN 29.5 PG (27.0-31.0); MEAN CORPUSCULAR HGB CONC 33.7 g/dL (33.0-36.5); MEAN CORPUSCULAR VOLUME 87.8 FL (78-98); MEAN PLATELET VOLUME 7.4 FL (7.4-10.4); MONOCYTES # (AUTO) 0.4 X10'3 (0-0.9); MONOCYTES % (AUTO) 2.7 % (2-12); NEUTROPHILS # (AUTO) 11.6 X10'3 (1.8-7.7); NEUTROPHILS % (AUTO) 85.9 % (42-75); PLATELET COUNT 317 X10'3 (140-440); RED BLOOD COUNT 5.05 X10'6 (4.70-6.10); RED CELL DISTRIBUTION WIDTH 13.4 % (11.5-14.5); WHITE BLOOD COUNT 13.5 X10'3 (4.5-11.0)
[2019-12-27 13:26] LABS: ALANINE AMINOTRANSFERASE 28 U/L (12-78); ALBUMIN 4.6 G/DL (3.4-5.0); ALBUMIN/GLOBULIN RATIO 1.3 (1.1-1.5); ALKALINE PHOSPHATASE 81 IU/L (46-116); ANION GAP 12 (8-16); ASPARTATE AMINO TRANSFERASE 18 U/L (10-37); BILIRUBIN,TOTAL 0.7 MG/DL (0.1-1.0); BLOOD UREA NITROGEN 8 MG/DL (7-18); BUN/CREATININE RATIO 7.5 (5.4-32.0); CALCIUM 9.4 MG/DL (8.5-10.1); CHLORIDE 102 MMOL/L (99-107); CREATININE 1.06 MG/DL (0.60-1.10); GLUCOSE 160 MG/DL (70-104); LIPASE 84 U/L (73-393); SODIUM 140 MMOL/L (135-145); TOTAL CARBON DIOXIDE 26.2 MMOL/L (24-32); TOTAL PROTEIN 8.2 G/DL (6.4-8.2); eGFR 87 ML/MIN
[2019-12-27] MEDS ORDERED: proCHLORperazine 10mg tablet PO ONE (14:35)
[2019-12-27] MEDS ORDERED: diphenhydrAMINE 25mg capsule PO ONE (14:35)
[2019-12-27 15:45] LABS: C-REACTIVE PROTEIN < 0.05 MG/DL (0.0-0.5)
[2019-12-27] MEDS ORDERED: PROM6.256 PO (16:02)
[2019-12-27] MEDS ORDERED: DICY10CA88 PO (16:02)
[2019-12-27] MEDS ORDERED: diphenhydrAMINE 50 mg/ml inj IM ONE (16:05)
[2019-12-27] MEDS ORDERED: ketorolac tromethamine 15mg/ml inj. IM ONE (16:05)
[2019-12-27] MEDS ORDERED: proCHLORperazine 10 MG/2 ml inj IM ONE (16:05)
[2019-12-27 16:34] VITALS: BP 130/73
== END 2019-12-27 17:35 | disposition home or self-care (01) ==
LOC: ER 12:03
DX: R10.31 Right lower quadrant pain (principal); R11.2 Nausea with vomiting, unspecified; F12.90 Cannabis use, unspecified, uncomplicated; Z72.89 Other problems related to lifestyle; Z79.899 Other long term (current) drug therapy
CPT/HCPCS: 36415; 76700; 80053; 83690; 85025; 85651; 86140; 96372; 99284; J0780; J1200; J1885; Q0163; Q0164

== ENCOUNTER 2019-12-29 07:29 | Emergency (ER) | payer MEDICAID ==
[~2019-12-29] VITALS: Ht 167.6 cm; Wt 67.9 kg
[~2019-12-29 07:29] MED LIST changes: +DICY10CA88 PO; +PROM6.256 PO
[2019-12-29] MEDS ORDERED: ondansetron/PF 4mg/2ml inj IV ONE (07:50)
[2019-12-29] MEDS ORDERED: normal saline 1000ML IV soln IVB ONE (07:50)
--- NOTE | 2019-12-29 08:15 | NUR ---
pt out to ct via wheelchair with sewer connector
[2019-12-29 08:26] LABS: BASOPHILS % (AUTO) 0.1 % (0-1); EOSINOPHILS % (AUTO) 0 % (0-6); HEMATOCRIT 41.2 % (42.0-52.0); HEMOGLOBIN 13.9 g/dl (14.0-17.9); LYMPHOCYTES # (AUTO) 0.7 X10'3 (1.1-4.8); LYMPHOCYTES % (AUTO) 5.3 % (21-51); MEAN CORPUSCULAR HEMOGLOBIN 29.7 PG (27.0-31.0); MEAN CORPUSCULAR HGB CONC 33.8 g/dL (33.0-36.5); MEAN CORPUSCULAR VOLUME 87.9 FL (78-98); MEAN PLATELET VOLUME 7.4 FL (7.4-10.4); MONOCYTES # (AUTO) 0.4 X10'3 (0-0.9); NEUTROPHILS # (AUTO) 11.6 X10'3 (1.8-7.7); NEUTROPHILS % (AUTO) 91.6 % (42-75); PLATELET COUNT 244 X10'3 (140-440); RED BLOOD COUNT 4.69 X10'6 (4.70-6.10); RED CELL DISTRIBUTION WIDTH 13.7 % (11.5-14.5); WHITE BLOOD COUNT 12.6 X10'3 (4.5-11.0)
--- NOTE | 2019-12-29 08:33 | NUR ---
pt returns from ct
[2019-12-29] MEDS ORDERED: ketorolac tromethamine 15mg/ml inj. IV ONE (08:40)
[2019-12-29 08:50] LABS: ALANINE AMINOTRANSFERASE 32 U/L (12-78); ALBUMIN 4.2 G/DL (3.4-5.0); ALBUMIN/GLOBULIN RATIO 1.3 (1.1-1.5); ALKALINE PHOSPHATASE 69 IU/L (46-116); ANION GAP 9 (8-16); ASPARTATE AMINO TRANSFERASE 30 U/L (10-37); BILIRUBIN,TOTAL 0.4 MG/DL (0.1-1.0); BLOOD UREA NITROGEN 12 MG/DL (7-18); CALCIUM 8.8 MG/DL (8.5-10.1); CHLORIDE 103 MMOL/L (99-107); GLUCOSE 121 MG/DL (70-104); LIPASE 113 U/L (73-393); POTASSIUM 3.2 MMOL/L (3.5-5.1); SODIUM 139 MMOL/L (135-145); TOTAL CARBON DIOXIDE 27.4 MMOL/L (24-32); TOTAL PROTEIN 7.4 G/DL (6.4-8.2); eGFR > 90 ML/MIN
[2019-12-29] MEDS ORDERED: potassium Cl 20 mEq SR tablet PO STA (09:00)
[2019-12-29 09:56] VITALS: BP 123/59
== END 2019-12-29 09:58 | disposition home or self-care (01) ==
LOC: ER 07:29
DX: R10.31 Right lower quadrant pain (principal); R11.10 Vomiting, unspecified; E87.6 Hypokalemia; F12.90 Cannabis use, unspecified, uncomplicated; Z79.899 Other long term (current) drug therapy
CPT/HCPCS: 36415; 74176; 80053; 83690; 85025; 96361; 96374; 96375; 99284; J1885; J2405; J7030

== ENCOUNTER 2020-03-12 12:25 | Emergency (ER) | payer MEDICAID ==
[~2020-03-12] VITALS: Ht 167.6 cm; Wt 77.3 kg
[2020-03-12 12:53] LABS: BASOPHILS % (AUTO) 0.1 % (0-1); EOSINOPHILS % (AUTO) 0 % (0-6); HEMATOCRIT 45.7 % (42.0-52.0); HEMOGLOBIN 15.3 g/dl (14.0-17.9); LYMPHOCYTES # (AUTO) 0.7 X10'3 (1.1-4.8); LYMPHOCYTES % (AUTO) 6.2 % (21-51); MEAN CORPUSCULAR HEMOGLOBIN 29.9 PG (27.0-31.0); MEAN CORPUSCULAR HGB CONC 33.4 g/dL (33.0-36.5); MEAN CORPUSCULAR VOLUME 89.3 FL (78-98); MEAN PLATELET VOLUME 7.5 FL (7.4-10.4); MONOCYTES # (AUTO) 0.2 X10'3 (0-0.9); MONOCYTES % (AUTO) 1.8 % (2-12); NEUTROPHILS % (AUTO) 91.9 % (42-75); PLATELET COUNT 300 X10'3 (140-440); RED BLOOD COUNT 5.12 X10'6 (4.70-6.10); RED CELL DISTRIBUTION WIDTH 13.3 % (11.5-14.5)
[2020-03-12] MEDS ORDERED: ondansetron/PF 4mg/2ml inj IV ONE ×2 (13:05→14:35)
[2020-03-12] MEDS ORDERED: normal saline 1000ml 1,000 ML IV ONE (13:05)
[2020-03-12 13:09] LABS: ALANINE AMINOTRANSFERASE 30 U/L (12-78); ALBUMIN 4.8 G/DL (3.4-5.0); ALBUMIN/GLOBULIN RATIO 1.4 (1.1-1.5); ALKALINE PHOSPHATASE 78 IU/L (46-116); ANION GAP 11 (8-16); ASPARTATE AMINO TRANSFERASE 23 U/L (10-37); BILIRUBIN,TOTAL 0.7 MG/DL (0.1-1.0); BLOOD UREA NITROGEN 8 MG/DL (7-18); BUN/CREATININE RATIO 8.3 (5.4-32.0); CALCIUM 9.2 MG/DL (8.5-10.1); CHLORIDE 103 MMOL/L (99-107); CREATININE 0.96 MG/DL (0.60-1.10); GLUCOSE 161 MG/DL (70-104); POTASSIUM 3.9 MMOL/L (3.5-5.1); SODIUM 140 MMOL/L (135-145); TOTAL CARBON DIOXIDE 26.3 MMOL/L (24-32); TOTAL PROTEIN 8.3 G/DL (6.4-8.2); eGFR > 90 ML/MIN
[2020-03-12 13:54] LABS: LIPASE 73 U/L (73-393)
--- NOTE | 2020-03-12 13:57 | NUR ---
Pt given urine cup and aware that we need a urine sample.
[2020-03-12] MEDS ORDERED: ONDA4TAB6 PO (14:09)
[2020-03-12] MEDS ORDERED: morphine 4 MG/ML inj SYRINge IV ONE (14:35)
[2020-03-12 14:50] VITALS: BP 131/66
[2020-03-12] MEDS ORDERED: PROC-8 PO (23:18)
[2020-03-12] MEDS ORDERED: POTA-82 PO (23:20)
== END 2020-03-12 14:53 | disposition home or self-care (01) ==
LOC: ER 12:25
DX: R11.2 Nausea with vomiting, unspecified (principal); R53.1 Weakness; E86.0 Dehydration; R10.30 Lower abdominal pain, unspecified; F12.90 Cannabis use, unspecified, uncomplicated; Z87.11 Personal history of peptic ulcer disease; Z72.89 Other problems related to lifestyle; Z79.899 Other long term (current) drug therapy
CPT/HCPCS: 36415; 80053; 83690; 85025; 96361; 96374; 96375; 96376; 99284; J2270; J2405; J7030

== ENCOUNTER 2020-03-12 20:28 | Emergency (ER) | payer MEDICAID ==
[~2020-03-12] VITALS: Ht 167.6 cm; Wt 68.2 kg
[2020-03-12] MEDS ORDERED: normal saline 1000ml 1,000 ML IVB ONE (20:37)
[2020-03-12 20:57] LABS: BASOPHILS % (AUTO) 0.2 % (0-1); EOSINOPHILS % (AUTO) 0.1 % (0-6); HEMATOCRIT 42.1 % (42.0-52.0); HEMOGLOBIN 14.1 g/dl (14.0-17.9); LYMPHOCYTES # (AUTO) 0.4 X10'3 (1.1-4.8); LYMPHOCYTES % (AUTO) 3.6 % (21-51); MEAN CORPUSCULAR HEMOGLOBIN 29.6 PG (27.0-31.0); MEAN CORPUSCULAR HGB CONC 33.5 g/dL (33.0-36.5); MEAN CORPUSCULAR VOLUME 88.4 FL (78-98); MEAN PLATELET VOLUME 7.3 FL (7.4-10.4); MONOCYTES # (AUTO) 0.3 X10'3 (0-0.9); MONOCYTES % (AUTO) 2.2 % (2-12); NEUTROPHILS # (AUTO) 11.2 X10'3 (1.8-7.7); NEUTROPHILS % (AUTO) 93.9 % (42-75); PLATELET COUNT 269 X10'3 (140-440); RED BLOOD COUNT 4.77 X10'6 (4.70-6.10); RED CELL DISTRIBUTION WIDTH 13.3 % (11.5-14.5); WHITE BLOOD COUNT 11.9 X10'3 (4.5-11.0)
[2020-03-12 21:14] LABS: ALANINE AMINOTRANSFERASE 28 U/L (12-78); ALBUMIN 4.2 G/DL (3.4-5.0); ALBUMIN/GLOBULIN RATIO 1.2 (1.1-1.5); ALKALINE PHOSPHATASE 71 IU/L (46-116); AMYLASE 43 U/L (25-115); ANION GAP 9 (8-16); ASPARTATE AMINO TRANSFERASE 18 U/L (10-37); BILIRUBIN,TOTAL 0.8 MG/DL (0.1-1.0); BLOOD UREA NITROGEN 6 MG/DL (7-18); BUN/CREATININE RATIO 7.3 (5.4-32.0); CALCIUM 8.9 MG/DL (8.5-10.1); CHLORIDE 101 MMOL/L (99-107); CREATININE 0.82 MG/DL (0.60-1.10); GLUCOSE 150 MG/DL (70-104); LIPASE 64 U/L (73-393); POTASSIUM 3.4 MMOL/L (3.5-5.1); SODIUM 136 MMOL/L (135-145); TOTAL CARBON DIOXIDE 26.1 MMOL/L (24-32); TOTAL PROTEIN 7.7 G/DL (6.4-8.2); eGFR > 90 ML/MIN
[2020-03-12] MEDS ORDERED: proCHLORperazine 10 MG/2 ml inj IV ONE (21:40)
[2020-03-12] MEDS ORDERED: normal saline 1000ML IV soln IVB ONE (21:40)
[2020-03-12] MEDS ORDERED: morphine 4 MG/ML inj SYRINge IV ONE (21:40)
--- NOTE | 2020-03-12 22:00 | NUR ---
patient in bed covers on eyes closed no observable s/s of acute pain at this time garrido aware non-administer morphine due to patient resting well
--- NOTE | 2020-03-12 22:16 | NUR ---
PATIENT UP TO USE RESTROOM OBSERVED STEADY GAIT YUEN AWARE
[2020-03-12] MEDS ORDERED: metoclopramide 5 mg/ml inj IV ONE (22:20)
[2020-03-12] MEDS ORDERED: diphenhydrAMINE 50 mg/ml inj IV ONE (22:20)
--- NOTE | 2020-03-12 22:39 | NUR ---
patient back from restroom in bed covers on eyes closed rr even un labored patient has auditory snoring observed no observable s/s of acute pain/stress observed at this time will continue to monitor
[2020-03-12 22:49] LABS: CLARITY,URINE CLEAR (Clear); COLOR,URINE YELLOW (Yellow); GLUCOSE, URINE 250 mg/dl (Neg); KETONES,URINE TRACE mg/dl (Neg); LEUKOCYTE ESTERASE ,URINE NEGATIVE (Neg); NITRITES, URINE NEGATIVE (Neg); OCCULT BLOOD,URINE NEGATIVE (Neg); PROTEIN,URINE NEGATIVE (Neg); UA COLLECTION TYPE CLN CATCH MIDSTREAM; UROBILINOGEN,URINE 0.2 E.U/dL (0.2-1.0)
[2020-03-12] MEDS ORDERED: haloperidol lactate 5mg/ml inj IM ONE (23:15)
[2020-03-12] MEDS ORDERED: PROC-8 PO (23:18)
[2020-03-12] MEDS ORDERED: POTA-82 PO (23:20)
[2020-03-12 23:26] LABS: URINE AMPHETAMINE SCREEN NEGATIVE (Neg); URINE BARBITUATE SCREEN NEGATIVE (Neg); URINE BENZODIAZEPINES SCREEN NEGATIVE (Neg); URINE CANNABINOID SCREEN POSITIVE (Neg); URINE COCAINE SCREEN NEGATIVE (Neg); URINE METHADONE SCREEN NEGATIVE (Neg); URINE OPIATE SCREEN POSITIVE (Neg); URINE PHENCYCLIDINE SCREEN NEGATIVE (Neg)
[2020-03-13] MEDS ORDERED: diphenhydrAMINE 50 mg/ml inj ONE (00:17)
[2020-03-13] MEDS ORDERED: diphenhydrAMINE 50 mg/ml inj IV ONE (00:20)
[2020-03-13] MEDS ORDERED: benztropine 1 mg/ml 2ml ampule IV ONE (00:20)
--- NOTE | 2020-03-13 00:30 | NUR ---
PATIENT WAS BEING DISCHARGED WHEN PATIENT SUDDENLY TENSED UP WITH INCREASED HR,BP, VITOR ORDERED MEDICATION TO COUNTER A POSSIBLE REACTION TO HALDOL.
--- NOTE | 2020-03-13 00:31 | NUR ---
PATIENT AOX4 AND WAS ABLE TO AMBULATE WITH OUT ASSIST WITH A STEADY GAIT> 300 FEET AND RESTROOM BREAK, AFTER RECIEVING BENDRYL FOR REACTION, PATIENT IS BACK IN BED RESTING HR WNL,BP,WNL AT THIS TIME WE WILL CONTINUE TO MONITOR UNTIL DR. ADLER FEELD REACTION HAS FINISHED ITS COURSE
--- NOTE | 2020-03-13 00:57 | NUR ---
He is asleep. Lights dimmed. RR 15
--- NOTE | 2020-03-13 02:24 | NUR ---
RR EVEN UN LABORED EASY TO AROUSE AOX4 PATIENT IS READY FOR DISCHARGE
[2020-03-13 02:35] VITALS: BP 101/63
== END 2020-03-13 03:15 | disposition home or self-care (01) ==
LOC: ER 20:29
DX: R11.15 Cyclical vomiting syndrome unrelated to migraine (principal); R10.9 Unspecified abdominal pain; E87.6 Hypokalemia; F12.90 Cannabis use, unspecified, uncomplicated; Z72.89 Other problems related to lifestyle; Z88.8 Allergy status to other drugs, medicaments and biological substances; Z79.899 Other long term (current) drug therapy
CPT/HCPCS: 36415; 80053; 80305; 81003; 82150; 83690; 85025; 96361; 96372; 96374; 96375; 99285; J0515; J0780; J1200; J1630; J2765; J7030

== ENCOUNTER 2020-03-13 12:22 | Emergency (ER) | payer MEDICAID ==
[~2020-03-13] VITALS: Ht 167.6 cm; Wt 75.0 kg
[~2020-03-13 12:22] MED LIST changes: +POTA-82 PO; +PROC-8 PO
[2020-03-13] MEDS ORDERED: diphenhydrAMINE 50 mg/ml inj IV ONE (13:40)
[2020-03-13] MEDS ORDERED: LORazepam 2 mg/ml vial IV ONE (13:40)
[2020-03-13] MEDS ORDERED: LORazepam 2 mg/ml vial IM ONE (13:55)
[2020-03-13] MEDS ORDERED: diphenhydrAMINE 50 mg/ml inj IM ONE (13:55)
[2020-03-13] MEDS ORDERED: morphine 4 MG/ML inj SYRINge IV PRN (14:15)
[2020-03-13] MEDS ORDERED: magnesium 2GM in 50ml NS 50 ML IV ONE (14:15)
[2020-03-13] MEDS ORDERED: normal saline 1000ML IV soln IVB ONE (14:15)
[2020-03-13 14:50] LABS: BASOPHILS % (AUTO) 0.2 % (0-1); EOSINOPHILS % (AUTO) 0 % (0-6); HEMATOCRIT 41.7 % (42.0-52.0); LYMPHOCYTES # (AUTO) 0.6 X10'3 (1.1-4.8); LYMPHOCYTES % (AUTO) 3.5 % (21-51); MEAN CORPUSCULAR HEMOGLOBIN 30.3 PG (27.0-31.0); MEAN CORPUSCULAR HGB CONC 33.6 g/dL (33.0-36.5); MEAN CORPUSCULAR VOLUME 90.3 FL (78-98); MEAN PLATELET VOLUME 7.6 FL (7.4-10.4); MONOCYTES # (AUTO) 0.7 X10'3 (0-0.9); MONOCYTES % (AUTO) 4.2 % (2-12); NEUTROPHILS # (AUTO) 14.9 X10'3 (1.8-7.7); NEUTROPHILS % (AUTO) 92.1 % (42-75); PLATELET COUNT 240 X10'3 (140-440); RED BLOOD COUNT 4.62 X10'6 (4.70-6.10); RED CELL DISTRIBUTION WIDTH 13.3 % (11.5-14.5); WHITE BLOOD COUNT 16.2 X10'3 (4.5-11.0)
[2020-03-13 15:06] LABS: ALANINE AMINOTRANSFERASE 25 U/L (12-78); ALBUMIN 3.9 G/DL (3.4-5.0); ALBUMIN/GLOBULIN RATIO 1.2 (1.1-1.5); ALKALINE PHOSPHATASE 67 IU/L (46-116); ANION GAP 16 (8-16); ASPARTATE AMINO TRANSFERASE 18 U/L (10-37); BILIRUBIN,TOTAL 0.4 MG/DL (0.1-1.0); BLOOD UREA NITROGEN 7 MG/DL (7-18); BUN/CREATININE RATIO 5.1 (5.4-32.0); CHLORIDE 106 MMOL/L (99-107); CREATININE 1.36 MG/DL (0.60-1.10); GLUCOSE 115 MG/DL (70-104); POTASSIUM 3.7 MMOL/L (3.5-5.1); SODIUM 142 MMOL/L (135-145); TOTAL CARBON DIOXIDE 20.4 MMOL/L (24-32); TOTAL PROTEIN 7.2 G/DL (6.4-8.2); eGFR 65 ML/MIN
[2020-03-13 15:09] LABS: TROPONIN I < 0.04 NG/ML (0.0-0.05)
[2020-03-13 15:50] VITALS: BP 106/51
[2020-03-13] MEDS: normal saline 1000ML IV soln IVB ONE ×2 (16:04→16:05)
[2020-03-13 16:14] LABS: CLARITY,URINE CLEAR (Clear); COLOR,URINE YELLOW (Yellow); GLUCOSE, URINE NEGATIVE (Neg); KETONES,URINE TRACE mg/dl (Neg); LEUKOCYTE ESTERASE ,URINE NEGATIVE (Neg); NITRITES, URINE NEGATIVE (Neg); OCCULT BLOOD,URINE NEGATIVE (Neg); PH,URINE 6.5 (4.8-8.0); PROTEIN,URINE NEGATIVE (Neg); UROBILINOGEN,URINE 0.2 E.U/dL (0.2-1.0)
--- NOTE | 2020-03-13 16:15 | NUR ---
MD HANNONAYED PT. TO GO HOME AND TO HOLD 1L NS, INSTRUCTED PT. TO REPLACE FLUIDS ORALLY.
[2020-03-13 16:17] LABS: UA COLLECTION TYPE STRAIGHT CATH
== END 2020-03-13 16:07 | disposition home or self-care (01) ==
LOC: ER 12:23
DX: M62.838 Other muscle spasm (principal); E86.0 Dehydration; M25.511 Pain in right shoulder; F12.90 Cannabis use, unspecified, uncomplicated; Z87.11 Personal history of peptic ulcer disease; Z72.89 Other problems related to lifestyle; Z88.8 Allergy status to other drugs, medicaments and biological substances; Z79.899 Other long term (current) drug therapy
CPT/HCPCS: 36415; 80053; 81003; 84145; 84484; 85025; 96365; 96372; 99284; J1200; J2060; J3475; J7030

== ENCOUNTER 2020-04-08 06:29 | Emergency (ER) | payer MEDICAID ==
[~2020-04-08] VITALS: Ht 167.6 cm; Wt 68.2 kg
[2020-04-08 07:17] LABS: BASOPHILS % (AUTO) 0.4 % (0-1); EOSINOPHILS % (AUTO) 0.3 % (0-6); HEMATOCRIT 44.2 % (42.0-52.0); HEMOGLOBIN 14.6 g/dl (14.0-17.9); LYMPHOCYTES # (AUTO) 1.8 X10'3 (1.1-4.8); LYMPHOCYTES % (AUTO) 25.8 % (21-51); MEAN CORPUSCULAR HEMOGLOBIN 29.5 PG (27.0-31.0); MEAN CORPUSCULAR HGB CONC 33.1 g/dL (33.0-36.5); MEAN CORPUSCULAR VOLUME 89.2 FL (78-98); MEAN PLATELET VOLUME 7.5 FL (7.4-10.4); MONOCYTES # (AUTO) 0.4 X10'3 (0-0.9); MONOCYTES % (AUTO) 5.4 % (2-12); NEUTROPHILS # (AUTO) 4.7 X10'3 (1.8-7.7); NEUTROPHILS % (AUTO) 68.1 % (42-75); PLATELET COUNT 266 X10'3 (140-440); RED BLOOD COUNT 4.96 X10'6 (4.70-6.10); RED CELL DISTRIBUTION WIDTH 13.1 % (11.5-14.5); WHITE BLOOD COUNT 6.8 X10'3 (4.5-11.0)
[2020-04-08 07:18] LABS: ALANINE AMINOTRANSFERASE 25 U/L (12-78); ALBUMIN 4.1 G/DL (3.4-5.0); ALBUMIN/GLOBULIN RATIO 1.2 (1.1-1.5); ALKALINE PHOSPHATASE 71 IU/L (46-116); ANION GAP 12 (8-16); ASPARTATE AMINO TRANSFERASE 15 U/L (10-37); BILIRUBIN,TOTAL 0.4 MG/DL (0.1-1.0); BLOOD UREA NITROGEN 9 MG/DL (7-18); BUN/CREATININE RATIO 10.8 (5.4-32.0); CHLORIDE 105 MMOL/L (99-107); CREATININE 0.83 MG/DL (0.60-1.10); GLUCOSE 120 MG/DL (70-104); LIPASE 127 U/L (73-393); POTASSIUM 3.2 MMOL/L (3.5-5.1); SODIUM 142 MMOL/L (135-145); TOTAL CARBON DIOXIDE 24.6 MMOL/L (24-32); TOTAL PROTEIN 7.4 G/DL (6.4-8.2); eGFR > 90 ML/MIN
[2020-04-08] MEDS ORDERED: normal saline 1000ML IV soln IVB ONE (07:45)
[2020-04-08] MEDS ORDERED: ondansetron/PF 4mg/2ml inj IV ONE (07:45)
[2020-04-08] MEDS: morphine 4 MG/ML inj SYRINge IV PRN ×2 (07:49→08:26)
[2020-04-08] MEDS ORDERED: LIDOcaine Viscous 15ml cup TP ONE (09:20)
[2020-04-08] MEDS ORDERED: sucralfate 1 gm tablet PO ONE (09:20)
[2020-04-08] MEDS ORDERED: mag hydrox/Alum hydrox/simeth 30ml oral suspension PO ONE (09:20)
[2020-04-08 11:01] VITALS: BP 131/77
[2020-04-08] MEDS ORDERED: PROC25SU31 RC (20:08)
== END 2020-04-08 11:02 | disposition home or self-care (01) ==
LOC: ER 06:30
DX: R11.2 Nausea with vomiting, unspecified (principal); R10.13 Epigastric pain; F12.90 Cannabis use, unspecified, uncomplicated; Z72.89 Other problems related to lifestyle; Z88.8 Allergy status to other drugs, medicaments and biological substances; Z79.899 Other long term (current) drug therapy
CPT/HCPCS: 36415; 80053; 83690; 85025; 96361; 96374; 96375; 96376; 99285; J2270; J2405; J7030

== ENCOUNTER 2020-04-08 19:12 | Emergency (ER) | payer MEDICAID ==
[~2020-04-08] VITALS: Ht 165.1 cm; Wt 68.2 kg
[2020-04-08] MEDS ORDERED: PROC25SU31 RC (20:08)
[2020-04-08 20:23] VITALS: BP 130/76
== END 2020-04-08 20:26 | disposition home or self-care (01) ==
LOC: ER 19:13
DX: R11.2 Nausea with vomiting, unspecified (principal); R10.84 Generalized abdominal pain; F12.90 Cannabis use, unspecified, uncomplicated; Z88.8 Allergy status to other drugs, medicaments and biological substances; Z79.899 Other long term (current) drug therapy
CPT/HCPCS: 99282

== ENCOUNTER 2020-04-09 01:47 | Emergency (ER) | payer MEDICAID ==
[~2020-04-09] VITALS: Ht 167.6 cm; Wt 68.2 kg
[~2020-04-09 01:47] MED LIST changes: +PROC25SU31 RC
[2020-04-09] MEDS ORDERED: normal saline 1000ml 1,000 ML IV ONE (02:15)
[2020-04-09] MEDS ORDERED: ondansetron/PF 4mg/2ml inj IV ONE (02:15)
[2020-04-09] MEDS ORDERED: famotidine/PF 10 mg/ml inj IV ONE (02:15)
[2020-04-09] MEDS ORDERED: metoclopramide 5 mg/ml inj IV ONE (02:15)
[2020-04-09] MEDS ORDERED: LORazepam 2 mg/ml vial IV ONE (02:25)
[2020-04-09] MEDS ORDERED: ketorolac trometh. 30mg/ml inj. IV ONE (02:25)
[2020-04-09] MEDS ORDERED: mag hydrox/Alum hydrox/simeth 30ml oral suspension PO ONE (03:25)
[2020-04-09] MEDS ORDERED: LIDOcaine Viscous 15ml cup MM ONE (03:25)
[2020-04-09 04:32] VITALS: BP 110/63
[2020-04-09] MEDS ORDERED: pantoprazole 40mg Tablet.DR PO SCH (07:30)
== END 2020-04-09 04:33 | disposition home or self-care (01) ==
LOC: ER 01:47
DX: R11.15 Cyclical vomiting syndrome unrelated to migraine (principal); R11.10 Vomiting, unspecified; F12.90 Cannabis use, unspecified, uncomplicated; Z88.8 Allergy status to other drugs, medicaments and biological substances; Z79.899 Other long term (current) drug therapy
CPT/HCPCS: 96361; 96374; 96375; 99284; J1885; J2060; J2405; J2765; J3490; J7030

== ENCOUNTER 2020-04-22 00:23 | Emergency (ER) | payer MEDICAID ==
[~2020-04-22] VITALS: Ht 167.6 cm; Wt 67.3 kg
[~2020-04-22 00:23] MED LIST changes: -PROC25SU31 RC
[2020-04-22 00:27] VITALS: BP 130/83
[2020-04-22] MEDS ORDERED: sulfamethoxazole/trimethoprim DS (800/160mg) tablet PO ONE (00:45)
[2020-04-22] MEDS ORDERED: SULF1TAB49 PO (00:45)
[2020-04-22] MEDS ORDERED: ondansetron 4mg rapidly disintigrating tab PO ONE (00:45)
== END 2020-04-22 01:10 | disposition home or self-care (01) ==
LOC: ER 00:24
DX: L73.9 Follicular disorder, unspecified (principal); F12.90 Cannabis use, unspecified, uncomplicated; Z88.8 Allergy status to other drugs, medicaments and biological substances; Z79.899 Other long term (current) drug therapy
CPT/HCPCS: 99283

== ENCOUNTER 2020-05-08 14:05 | Emergency (ER) | payer MEDICAID ==
[~2020-05-08] VITALS: Ht 165.1 cm; Wt 70.5 kg
[2020-05-08 15:08] LABS: BASOPHILS % (AUTO) 0.2 % (0-1); EOSINOPHILS % (AUTO) 0 % (0-6); HEMOGLOBIN 14.2 g/dl (14.0-17.9); LYMPHOCYTES # (AUTO) 1.1 X10'3 (1.1-4.8); LYMPHOCYTES % (AUTO) 8.2 % (21-51); MEAN CORPUSCULAR HEMOGLOBIN 29.1 PG (27.0-31.0); MEAN CORPUSCULAR HGB CONC 33.1 g/dL (33.0-36.5); MEAN CORPUSCULAR VOLUME 87.9 FL (78-98); MEAN PLATELET VOLUME 7.2 FL (7.4-10.4); MONOCYTES # (AUTO) 0.4 X10'3 (0-0.9); MONOCYTES % (AUTO) 3.2 % (2-12); NEUTROPHILS # (AUTO) 11.8 X10'3 (1.8-7.7); NEUTROPHILS % (AUTO) 88.4 % (42-75); PLATELET COUNT 316 X10'3 (140-440); RED BLOOD COUNT 4.89 X10'6 (4.70-6.10); RED CELL DISTRIBUTION WIDTH 13.2 % (11.5-14.5); WHITE BLOOD COUNT 13.3 X10'3 (4.5-11.0)
[2020-05-08 15:15] LABS: CLARITY,URINE TURBID (Clear); COLOR,URINE YELLOW (Yellow); GLUCOSE, URINE NEGATIVE (Neg); KETONES,URINE TRACE mg/dl (Neg); LEUKOCYTE ESTERASE ,URINE NEGATIVE (Neg); NITRITES, URINE NEGATIVE (Neg); OCCULT BLOOD,URINE NEGATIVE (Neg); PH,URINE 8.5 (4.8-8.0); PROTEIN,URINE NEGATIVE (Neg); UROBILINOGEN,URINE 0.2 E.U/dL (0.2-1.0)
[2020-05-08 15:23] LABS: ALANINE AMINOTRANSFERASE 35 U/L (12-78); ALBUMIN 4.4 G/DL (3.4-5.0); ALBUMIN/GLOBULIN RATIO 1.2 (1.1-1.5); ALKALINE PHOSPHATASE 77 IU/L (46-116); ANION GAP 8 (8-16); ASPARTATE AMINO TRANSFERASE 25 U/L (10-37); BILIRUBIN,TOTAL 0.7 MG/DL (0.1-1.0); BLOOD UREA NITROGEN 8 MG/DL (7-18); BUN/CREATININE RATIO 9.5 (5.4-32.0); CALCIUM 9.1 MG/DL (8.5-10.1); CHLORIDE 103 MMOL/L (99-107); CREATININE 0.84 MG/DL (0.60-1.10); GLUCOSE 150 MG/DL (70-104); LIPASE 137 U/L (73-393); POTASSIUM 3.9 MMOL/L (3.5-5.1); SODIUM 140 MMOL/L (135-145); TOTAL CARBON DIOXIDE 28.7 MMOL/L (24-32); TOTAL PROTEIN 8.1 G/DL (6.4-8.2); eGFR > 90 ML/MIN
[2020-05-08 15:27] LABS: UA COLLECTION TYPE CLN CATCH MIDSTREAM
[2020-05-08 15:42] LABS: AMORPHOUS PHOSPHATES 4+; SQUAMOUS EPITHELIAL CELL,UR MODERATE /LPF (FEW)
[2020-05-08 15:43] LABS: BACTERIA,URINE FEW /HPF (Neg); RBC,URINE 0-2 /HPF (0-2); WBC,URINE 0-4 /HPF (0-4)
[2020-05-08] MEDS ORDERED: normal saline 1000ml 1,000 ML IV ONE ×2 (16:00)
[2020-05-08] MEDS ORDERED: ondansetron/PF 4mg/2ml inj IV ONE (16:00)
[2020-05-08] MEDS ORDERED: mag hydrox/Alum hydrox/simeth 30ml oral suspension PO ONE (16:15)
[2020-05-08] MEDS ORDERED: proCHLORperazine 10 MG/2 ml inj IV ONE (16:15)
[2020-05-08] MEDS ORDERED: diphenhydrAMINE 50 mg/ml inj IV ONE (16:15)
[2020-05-08] MEDS ORDERED: LIDOcaine Viscous 15ml cup MM ONE (16:15)
[2020-05-08] MEDS ORDERED: ONDA4TAB6 PO (17:17)
[2020-05-08 17:43] VITALS: BP 102/46
[2020-05-09] MEDS ORDERED: IBUP-1984 PO (07:02)
[2020-05-09] MEDS ORDERED: ACET-2615 PO (07:02)
== END 2020-05-08 17:44 | disposition home or self-care (01) ==
LOC: ER 14:06
DX: R11.2 Nausea with vomiting, unspecified (principal); R10.13 Epigastric pain; F12.90 Cannabis use, unspecified, uncomplicated; Z87.11 Personal history of peptic ulcer disease; Z88.8 Allergy status to other drugs, medicaments and biological substances; Z79.899 Other long term (current) drug therapy
CPT/HCPCS: 36415; 80053; 81001; 83690; 85025; 96374; 96375; 99284; J0780; J1200; J2405; J7030

== ENCOUNTER 2020-05-09 06:48 | Emergency (ER) | payer MEDICAID ==
[~2020-05-09] VITALS: Ht 165.1 cm; Wt 59.0 kg
[2020-05-09 06:54] VITALS: BP 140/79
[2020-05-09] MEDS ORDERED: ACET-2615 PO (07:02)
[2020-05-09] MEDS ORDERED: IBUP-1984 PO (07:02)
[2020-05-09] MEDS ORDERED: ibuprofen tablet 400 MG TABLET PO ONE (07:05)
[2020-05-09] MEDS ORDERED: ondansetron 4mg rapidly disintigrating tab PO ONE (07:05)
[2020-05-09] MEDS ORDERED: acetaminophen 325mg tablet PO ONE (07:05)
== END 2020-05-09 07:20 | disposition home or self-care (01) ==
LOC: ER 06:49
DX: M54.6 Pain in thoracic spine (principal); M62.830 Muscle spasm of back; R11.2 Nausea with vomiting, unspecified; F12.90 Cannabis use, unspecified, uncomplicated; Z88.8 Allergy status to other drugs, medicaments and biological substances; Z79.899 Other long term (current) drug therapy
CPT/HCPCS: 99284

== ENCOUNTER 2020-05-19 18:05 | Emergency (ER) | payer MEDICAID ==
[~2020-05-19] VITALS: Ht 167.6 cm; Wt 69.0 kg
[~2020-05-19 18:05] MED LIST changes: +ACET-2615 PO; +IBUP-1984 PO
[2020-05-19 18:06] VITALS: BP 114/63
== END 2020-05-19 18:45 | disposition home or self-care (01) ==
LOC: ER 18:05
DX: S93.402A Sprain of unspecified ligament of left ankle, initial encounter (principal); M25.472 Effusion, left ankle; F12.90 Cannabis use, unspecified, uncomplicated; Z87.11 Personal history of peptic ulcer disease; Z88.8 Allergy status to other drugs, medicaments and biological substances; Z79.899 Other long term (current) drug therapy; W01.0XXA Fall on same level from slipping, tripping and stumbling without subsequent striking against object, initial encounter; Y93.89 Activity, other specified; Y92.89 Other specified places as the place of occurrence of the external cause; Y99.8 Other external cause status
CPT/HCPCS: 29515; 73610; 99283

== ENCOUNTER 2020-06-26 11:01 | Emergency (ER) | payer MEDICAID ==
[~2020-06-26] VITALS: Ht 167.6 cm; Wt 75.0 kg
[~2020-06-26 11:01] MED LIST changes: -ACET-2615 PO; -IBUP-1984 PO
--- NOTE | 2020-06-26 11:14 | NUR ---
pt stated unable to give ua at this time.
[2020-06-26 11:59] LABS: BASOPHILS % (AUTO) 0.2 % (0-1); EOSINOPHILS % (AUTO) 0.1 % (0-6); HEMATOCRIT 42.6 % (42.0-52.0); HEMOGLOBIN 14.5 g/dl (14.0-17.9); LYMPHOCYTES # (AUTO) 1.1 X10'3 (1.1-4.8); LYMPHOCYTES % (AUTO) 14.2 % (21-51); MEAN CORPUSCULAR HEMOGLOBIN 29.9 PG (27.0-31.0); MEAN CORPUSCULAR VOLUME 87.8 FL (78-98); MEAN PLATELET VOLUME 7.3 FL (7.4-10.4); MONOCYTES # (AUTO) 0.3 X10'3 (0-0.9); MONOCYTES % (AUTO) 3.5 % (2-12); NEUTROPHILS # (AUTO) 6.1 X10'3 (1.8-7.7); PLATELET COUNT 270 X10'3 (140-440); RED BLOOD COUNT 4.85 X10'6 (4.70-6.10); RED CELL DISTRIBUTION WIDTH 13.7 % (11.5-14.5); WHITE BLOOD COUNT 7.5 X10'3 (4.5-11.0)
[2020-06-26] MEDS ORDERED: normal saline 1000ML IV soln IVB ONE (12:00)
[2020-06-26] MEDS ORDERED: ondansetron/PF 4mg/2ml inj IV ONE (12:00)
[2020-06-26] MEDS ORDERED: LORazepam 2 mg/ml vial IV ONE (12:00)
[2020-06-26 12:15] LABS: ALANINE AMINOTRANSFERASE 22 U/L (12-78); ALBUMIN 4.3 G/DL (3.4-5.0); ALBUMIN/GLOBULIN RATIO 1.2 (1.1-1.5); ALKALINE PHOSPHATASE 79 IU/L (46-116); ANION GAP 10 (8-16); ASPARTATE AMINO TRANSFERASE 16 U/L (10-37); BILIRUBIN,TOTAL 0.6 MG/DL (0.1-1.0); BLOOD UREA NITROGEN 10 MG/DL (7-18); BUN/CREATININE RATIO 10.8 (5.4-32.0); CHLORIDE 105 MMOL/L (99-107); CREATININE 0.93 MG/DL (0.60-1.10); GLUCOSE 133 MG/DL (70-104); LIPASE 85 U/L (73-393); POTASSIUM 3.6 MMOL/L (3.5-5.1); SODIUM 141 MMOL/L (135-145); TOTAL CARBON DIOXIDE 26.3 MMOL/L (24-32); TOTAL PROTEIN 7.9 G/DL (6.4-8.2); eGFR > 90 ML/MIN
[2020-06-26 13:08] LABS: CLARITY,URINE CLOUDY (Clear); COLOR,URINE YELLOW (Yellow); GLUCOSE, URINE NEGATIVE (Neg); KETONES,URINE 15 mg/dl (Neg); LEUKOCYTE ESTERASE ,URINE NEGATIVE (Neg); NITRITES, URINE NEGATIVE (Neg); OCCULT BLOOD,URINE NEGATIVE (Neg); PROTEIN,URINE NEGATIVE (Neg); UROBILINOGEN,URINE 0.2 E.U/dL (0.2-1.0)
[2020-06-26 13:09] LABS: UA COLLECTION TYPE URINAL
[2020-06-26 13:17] LABS: AMORPHOUS PHOSPHATES 3+; BACTERIA,URINE NONE SEEN /HPF (Neg); MUCUS STRANDS NONE SEEN /LPF (Neg); RBC,URINE NONE SEEN /HPF (0-2); SQUAMOUS EPITHELIAL CELL,UR FEW /LPF (FEW); WBC,URINE 0-4 /HPF (0-4)
[2020-06-26] MEDS ORDERED: fentaNYL/PF 50MCG/1 ML 2ML syringe IV ONE (13:35)
[2020-06-26 15:09] VITALS: BP 97/45
[2020-06-26] MEDS ORDERED: ONDA4TAB6 PO (22:08)
== END 2020-06-26 15:12 | disposition home or self-care (01) ==
LOC: ER 11:02
DX: R11.15 Cyclical vomiting syndrome unrelated to migraine (principal); E86.0 Dehydration; R10.13 Epigastric pain; F12.10 Cannabis abuse, uncomplicated; Z88.8 Allergy status to other drugs, medicaments and biological substances; Z79.899 Other long term (current) drug therapy
CPT/HCPCS: 36415; 80053; 81001; 83690; 85025; 96374; 96375; 99284; J2060; J2405; J3010; J7030

== ENCOUNTER 2020-06-26 19:59 | Emergency (ER) | payer MEDICAID ==
[~2020-06-26] VITALS: Ht 167.6 cm; Wt 72.7 kg
[2020-06-26] MEDS ORDERED: ondansetron 4mg rapidly disintigrating tab PO ONE (22:05)
[2020-06-26] MEDS ORDERED: ONDA4TAB6 PO (22:08)
[2020-06-26 22:14] VITALS: BP 124/81
== END 2020-06-26 22:15 | disposition home or self-care (01) ==
LOC: ER 20:07
DX: R11.2 Nausea with vomiting, unspecified (principal); R53.83 Other fatigue; R10.84 Generalized abdominal pain; F12.90 Cannabis use, unspecified, uncomplicated; Z87.11 Personal history of peptic ulcer disease; Z88.8 Allergy status to other drugs, medicaments and biological substances; Z79.899 Other long term (current) drug therapy
CPT/HCPCS: 99283

== ENCOUNTER 2020-07-30 06:55 | Emergency (ER) | payer MEDICAID ==
[~2020-07-30] VITALS: Ht 167.6 cm; Wt 67.0 kg
[2020-07-30] MEDS ORDERED: normal saline 1000ML IV soln IVB ONE (07:10)
[2020-07-30] MEDS ORDERED: ondansetron/PF 4mg/2ml inj IV ONE (07:15)
[2020-07-30] MEDS ORDERED: LORazepam 2 mg/ml vial IV ONE (07:15)
[2020-07-30] MEDS ORDERED: proCHLORperazine 10 MG/2 ml inj IV ONE (07:15)
[2020-07-30] MEDS ORDERED: NO HOME MEDS (07:19)
[2020-07-30 07:25] LABS: BASOPHILS % (AUTO) 0.3 % (0-1); EOSINOPHILS % (AUTO) 0.4 % (0-6); HEMOGLOBIN 14.9 g/dl (14.0-17.9); LYMPHOCYTES # (AUTO) 2.6 X10'3 (1.1-4.8); LYMPHOCYTES % (AUTO) 40.6 % (21-51); MEAN CORPUSCULAR HEMOGLOBIN 30.5 PG (27.0-31.0); MEAN CORPUSCULAR VOLUME 89.9 FL (78-98); MEAN PLATELET VOLUME 7.6 FL (7.4-10.4); MONOCYTES # (AUTO) 0.4 X10'3 (0-0.9); MONOCYTES % (AUTO) 6.1 % (2-12); NEUTROPHILS # (AUTO) 3.3 X10'3 (1.8-7.7); NEUTROPHILS % (AUTO) 52.6 % (42-75); PLATELET COUNT 252 X10'3 (140-440); RED BLOOD COUNT 4.89 X10'6 (4.70-6.10); RED CELL DISTRIBUTION WIDTH 13.6 % (11.5-14.5); WHITE BLOOD COUNT 6.3 X10'3 (4.5-11.0)
[2020-07-30 07:40] LABS: ALANINE AMINOTRANSFERASE 28 U/L (12-78); ALBUMIN 4.2 G/DL (3.4-5.0); ALBUMIN/GLOBULIN RATIO 1.2 (1.1-1.5); ALKALINE PHOSPHATASE 77 IU/L (46-116); ANION GAP 11 (8-16); ASPARTATE AMINO TRANSFERASE 19 U/L (10-37); BILIRUBIN,TOTAL 0.4 MG/DL (0.1-1.0); BLOOD UREA NITROGEN 10 MG/DL (7-18); BUN/CREATININE RATIO 10.6 (5.4-32.0); CALCIUM 8.9 MG/DL (8.5-10.1); CHLORIDE 105 MMOL/L (99-107); CREATININE 0.94 MG/DL (0.60-1.10); GLUCOSE 118 MG/DL (70-104); LIPASE 112 U/L (73-393); POTASSIUM 3.7 MMOL/L (3.5-5.1); SODIUM 144 MMOL/L (135-145); TOTAL CARBON DIOXIDE 28.4 MMOL/L (24-32); TOTAL PROTEIN 7.8 G/DL (6.4-8.2); eGFR > 90 ML/MIN
[2020-07-30] MEDS ORDERED: metoclopramide 5 mg/ml inj IV ONE (08:15)
[2020-07-30] MEDS ORDERED: ketorolac trometh. 30mg/ml inj. IV ONE (08:20)
[2020-07-30 09:19] VITALS: BP 109/58
== END 2020-07-30 09:20 | disposition home or self-care (01) ==
LOC: ER 06:56
DX: R11.15 Cyclical vomiting syndrome unrelated to migraine (principal); R11.2 Nausea with vomiting, unspecified; R10.84 Generalized abdominal pain; F12.90 Cannabis use, unspecified, uncomplicated; Z87.11 Personal history of peptic ulcer disease; Z88.8 Allergy status to other drugs, medicaments and biological substances
CPT/HCPCS: 36415; 80053; 83690; 85025; 96361; 96374; 96375; 99284; J0780; J1885; J2060; J2405; J2765; J7030

== ENCOUNTER 2020-07-30 12:43 | Emergency (ER) | payer MEDICAID ==
[~2020-07-30 12:43] MED LIST changes: +NO HOME MEDS
[2020-07-30] MEDS ORDERED: ketorolac tromethamine 15mg/ml inj. IM ONE (13:30)
[2020-07-30 13:51] VITALS: BP 102/45
== END 2020-07-30 15:20 | disposition home or self-care (01) ==
LOC: ER 12:43
DX: R25.2 Cramp and spasm (principal); M54.89 Other dorsalgia; R11.2 Nausea with vomiting, unspecified; R10.84 Generalized abdominal pain; F12.90 Cannabis use, unspecified, uncomplicated; Z87.11 Personal history of peptic ulcer disease; Z88.8 Allergy status to other drugs, medicaments and biological substances
CPT/HCPCS: 96372; 99283; J1885

== ENCOUNTER 2020-09-05 12:50 | Emergency (ER) | payer MEDICAID ==
[~2020-09-05] VITALS: Ht 167.6 cm; Wt 63.9 kg
[~2020-09-05 12:50] MED LIST changes: -DICY10CA88 PO; -ONDA4TAB6 PO; -POTA-82 PO; -PROC-8 PO; -PROM12.512 PO; -PROM6.256 PO; -SERT25TA5 PO
[2020-09-05] MEDS ORDERED: normal saline 1000ml 1,000 ML IV ONE (13:40)
[2020-09-05] MEDS ORDERED: ondansetron/PF 4mg/2ml inj IV ONE (13:45)
[2020-09-05] MEDS ORDERED: proCHLORperazine 10 MG/2 ml inj IV ONE (13:50)
[2020-09-05 14:07] LABS: BASOPHILS % (AUTO) 0.3 % (0-1); EOSINOPHILS % (AUTO) 0.1 % (0-6); HEMATOCRIT 43.1 % (42.0-52.0); LYMPHOCYTES # (AUTO) 0.9 X10'3 (1.1-4.8); LYMPHOCYTES % (AUTO) 14.3 % (21-51); MEAN CORPUSCULAR HEMOGLOBIN 30.1 PG (27.0-31.0); MEAN CORPUSCULAR HGB CONC 34.8 g/dL (33.0-36.5); MEAN CORPUSCULAR VOLUME 86.3 FL (78-98); MEAN PLATELET VOLUME 7.4 FL (7.4-10.4); MONOCYTES # (AUTO) 0.3 X10'3 (0-0.9); MONOCYTES % (AUTO) 4.2 % (2-12); NEUTROPHILS % (AUTO) 81.1 % (42-75); PLATELET COUNT 219 X10'3 (140-440); RED BLOOD COUNT 4.99 X10'6 (4.70-6.10); RED CELL DISTRIBUTION WIDTH 13.3 % (11.5-14.5); WHITE BLOOD COUNT 6.2 X10'3 (4.5-11.0)
[2020-09-05 14:18] LABS: ALANINE AMINOTRANSFERASE 28 U/L (12-78); ALBUMIN 4.3 G/DL (3.4-5.0); ALBUMIN/GLOBULIN RATIO 1.1 (1.1-1.5); ALKALINE PHOSPHATASE 73 IU/L (46-116); ANION GAP 13 (8-16); ASPARTATE AMINO TRANSFERASE 16 U/L (10-37); BILIRUBIN,TOTAL 0.5 MG/DL (0.1-1.0); BLOOD UREA NITROGEN 9 MG/DL (7-18); CALCIUM 8.9 MG/DL (8.5-10.1); CHLORIDE 104 MMOL/L (99-107); CREATININE 0.75 MG/DL (0.60-1.10); GLUCOSE 132 MG/DL (70-104); LIPASE 72 U/L (73-393); POTASSIUM 3.6 MMOL/L (3.5-5.1); SODIUM 141 MMOL/L (135-145); TOTAL CARBON DIOXIDE 24.5 MMOL/L (24-32); TOTAL PROTEIN 8.1 G/DL (6.4-8.2); eGFR > 90 ML/MIN
--- NOTE | 2020-09-05 14:30 | NUR ---
Pt became very diapharetic. Pt appears "out of it", but is able to follow all commands given him. Pt's muscles are very rigid. Addendum: 09/05/20 at 1440 by [email or web address] SHELLEY Rajan and Dr Helton at bedside.
[2020-09-05] MEDS ORDERED: diphenhydrAMINE 50 mg/ml inj IV ONE (14:35)
--- NOTE | 2020-09-05 15:25 | NUR ---
PATIENT HAD ANOTHER EPISODE OF EXTREMITY TIGHTENING, DIAPHORESIS AND HR 164. DR FLORES AT BEDSIDE
[2020-09-05] MEDS ORDERED: ONDA4TAB6 PO (16:01)
[2020-09-05 17:23] VITALS: BP 134/63
== END 2020-09-05 17:26 | disposition home or self-care (01) ==
LOC: ER 12:51
DX: R11.15 Cyclical vomiting syndrome unrelated to migraine (principal); R11.2 Nausea with vomiting, unspecified; R10.31 Right lower quadrant pain; R51.9 Headache, unspecified; F12.90 Cannabis use, unspecified, uncomplicated; Z88.8 Allergy status to other drugs, medicaments and biological substances; Z79.899 Other long term (current) drug therapy
CPT/HCPCS: 36415; 80053; 83690; 85025; 96361; 96374; 96375; 99284; J0780; J1200; J2405; J7030

== ENCOUNTER 2020-09-05 18:37 | Emergency (ER) | payer MEDICAID ==
[~2020-09-05] VITALS: Ht 167.6 cm; Wt 68.2 kg
[~2020-09-05 18:37] MED LIST changes: +ONDA4TAB6 PO
[2020-09-05] MEDS ORDERED: diphenhydrAMINE 50 mg/ml inj IM ONE (21:50)
[2020-09-05 22:03] VITALS: BP 113/72
== END 2020-09-05 22:15 | disposition home or self-care (01) ==
LOC: ER 18:37
DX: R25.1 Tremor, unspecified (principal); R11.2 Nausea with vomiting, unspecified; R10.84 Generalized abdominal pain; M62.838 Other muscle spasm; F12.90 Cannabis use, unspecified, uncomplicated; Z88.8 Allergy status to other drugs, medicaments and biological substances; Z79.899 Other long term (current) drug therapy
CPT/HCPCS: 96372; 99283; J1200

== ENCOUNTER 2020-11-03 16:16 | Emergency (ER) | payer MEDICAID, OTHER ==
[~2020-11-03] VITALS: Ht 167.6 cm; Wt 68.1 kg
[2020-11-03 16:21] VITALS: BP 132/98
[2020-11-03] MEDS ORDERED: silver sulfadiazine cream 400gm jar TP STA (18:36)
[2020-11-03] MEDS ORDERED: ONDA4TAB6 PO (18:40)
[2020-11-03] MEDS ORDERED: HYDR-3965 PO (18:40)
[2020-11-03] MEDS ORDERED: CEPH250T PO (18:40)
[2020-11-03] MEDS ORDERED: ondansetron 4mg rapidly disintigrating tab PO ONE (18:40)
[2020-11-03] MEDS ORDERED: HYDROcodone/acetaminophen 5mg/325mg tablet PO ONE (18:40)
[2020-11-03] MEDS ORDERED: SILV50CR31 TOP (18:40)
== END 2020-11-03 19:21 | disposition home or self-care (01) ==
LOC: ER 16:17
DX: T23.7 Corrosion of third degree of wrist and hand (principal); M79.642 Pain in left hand; F12.90 Cannabis use, unspecified, uncomplicated; Z87.11 Personal history of peptic ulcer disease; Z88.8 Allergy status to other drugs, medicaments and biological substances; Z79.2 Long term (current) use of antibiotics; Z79.899 Other long term (current) drug therapy; Y93.89 Activity, other specified; Y92.89 Other specified places as the place of occurrence of the external cause; Y99.8 Other external cause status
CPT/HCPCS: 16000; 16020; 99284

== ENCOUNTER 2021-02-15 00:04 | Emergency (ER) | payer MEDICAID ==
[~2021-02-15] VITALS: Ht 167.6 cm; Wt 70.4 kg
[2021-02-15] MEDS ORDERED: ondansetron/PF 4mg/2ml inj IV ONE (01:45)
[2021-02-15] MEDS ORDERED: famotidine/PF 10 mg/ml inj IV ONE (01:50)
--- NOTE | 2021-02-15 02:22 | NUR ---
Dr. Helton notified of Zofran ineffective per patient; new orders received.
[2021-02-15] MEDS ORDERED: diphenhydrAMINE 50 mg/ml inj IV ONE ×2 (02:25→03:25)
[2021-02-15] MEDS ORDERED: metoclopramide 5 mg/ml inj IV ONE (02:25)
[2021-02-15 02:34] LABS: BASOPHILS % (AUTO) 0.2 % (0-1); EOSINOPHILS % (AUTO) 0.1 % (0-6); HEMOGLOBIN 14.3 g/dl (14.0-17.9); LYMPHOCYTES % (AUTO) 8.7 % (21-51); MEAN CORPUSCULAR HEMOGLOBIN 30.2 PG (27.0-31.0); MEAN CORPUSCULAR VOLUME 88.8 FL (78-98); MEAN PLATELET VOLUME 7.7 FL (7.4-10.4); MONOCYTES # (AUTO) 0.4 X10'3 (0-0.9); MONOCYTES % (AUTO) 3.7 % (2-12); NEUTROPHILS # (AUTO) 10.4 X10'3 (1.8-7.7); NEUTROPHILS % (AUTO) 87.3 % (42-75); PLATELET COUNT 248 X10'3 (140-440); RED BLOOD COUNT 4.73 X10'6 (4.70-6.10); RED CELL DISTRIBUTION WIDTH 13.4 % (11.5-14.5)
[2021-02-15 02:35] VITALS: BP 135/76
[2021-02-15 02:46] LABS: CLARITY,URINE SLIGHTLY CLOUDY (Clear); COLOR,URINE YELLOW (Yellow); GLUCOSE, URINE NEGATIVE (Neg); KETONES,URINE NEGATIVE (Neg); LEUKOCYTE ESTERASE ,URINE NEGATIVE (Neg); NITRITES, URINE NEGATIVE (Neg); OCCULT BLOOD,URINE NEGATIVE (Neg); PH,URINE 7.5 (4.8-8.0); PROTEIN,URINE NEGATIVE (Neg); UROBILINOGEN,URINE 0.2 E.U/dL (0.2-1.0)
[2021-02-15 02:50] LABS: UA COLLECTION TYPE CLN CATCH MIDSTREAM
[2021-02-15 02:50] LABS: ALBUMIN 3.6 G/DL (3.4-5.0); ANION GAP 9 (8-16); BILIRUBIN,TOTAL 0.2 MG/DL (0.1-1.0); BLOOD UREA NITROGEN 9 MG/DL (7-18); BUN/CREATININE RATIO 11.7 (5.4-32.0); CALCIUM 8.1 MG/DL (8.5-10.1); CHLORIDE 107 MMOL/L (99-107); CREATININE 0.77 MG/DL (0.60-1.10); GLUCOSE 150 MG/DL (70-104); POTASSIUM 3.6 MMOL/L (3.5-5.1); SODIUM 142 MMOL/L (135-145); TOTAL CARBON DIOXIDE 26.4 MMOL/L (24-32); TOTAL PROTEIN 7.1 G/DL (6.4-8.2); eGFR > 90 ML/MIN
[2021-02-15 02:51] LABS: AMORPHOUS PHOSPHATES 3+; BACTERIA,URINE FEW /HPF (Neg); RBC,URINE NONE SEEN /HPF (0-2); SQUAMOUS EPITHELIAL CELL,UR FEW /LPF (FEW); WBC,URINE 0-4 /HPF (0-4)
[2021-02-15 02:51] LABS: ALANINE AMINOTRANSFERASE 32 U/L (12-78); ALKALINE PHOSPHATASE 78 IU/L (46-116); ASPARTATE AMINO TRANSFERASE 21 U/L (10-37); LIPASE 97 U/L (73-393)
--- NOTE | 2021-02-15 03:08 | NUR ---
Refused to attempt PO challenge "I won't be able to keep that (water) down."
--- NOTE | 2021-02-15 03:15 | NUR ---
Girlfriend called MD and RN to bedside, patient was sitting up, muscles tensed, face flushed. VSS. Symptoms resolved in a few minutes. Per MD, add Reglan to allergy list as a possible reaction to the medication. New medication orders received.
[2021-02-15] MEDS ORDERED: normal saline 1000ml 1,000 ML IV ONE (03:20)
[2021-02-15] MEDS ORDERED: LORazepam 2 mg/ml vial IV ONE (03:25)
== END 2021-02-15 06:48 | disposition home or self-care (01) ==
LOC: ER 00:05
DX: R11.2 Nausea with vomiting, unspecified (principal); T50.905A Adverse effect of unspecified drugs, medicaments and biological substances, initial encounter; R10.13 Epigastric pain; F12.90 Cannabis use, unspecified, uncomplicated; Z87.11 Personal history of peptic ulcer disease; Z88.8 Allergy status to other drugs, medicaments and biological substances; Z79.899 Other long term (current) drug therapy; Y92.89 Other specified places as the place of occurrence of the external cause
CPT/HCPCS: 36415; 80053; 81001; 83690; 85025; 96361; 96374; 96375; 96376; 99284; J1200; J2060; J2405; J2765; J3490; J7030

== ENCOUNTER 2021-07-21 12:26 | Emergency (ER) | payer MEDICAID ==
[~2021-07-21] VITALS: Ht 167.6 cm; Wt 72.7 kg
[2021-07-21] MEDS ORDERED: metoclopramide 5 mg/ml inj IV ONE (12:40)
[2021-07-21] MEDS ORDERED: normal saline 1000ML IV soln IV ONE (12:40)
[2021-07-21] MEDS ORDERED: famotidine/PF 10 mg/ml inj IV ONE (12:40)
--- NOTE | 2021-07-21 13:04 | NUR ---
ATTEMPT EKG, PT NOT IN LOBBY AT THIS TIME.
[2021-07-21 13:12] LABS: BASOPHILS % (AUTO) 0.2 % (0-1); EOSINOPHILS % (AUTO) 0.1 % (0-6); HEMATOCRIT 46.1 % (42.0-52.0); HEMOGLOBIN 15.8 g/dl (14.0-17.9); LYMPHOCYTES # (AUTO) 1.7 X10'3 (1.1-4.8); MEAN CORPUSCULAR HEMOGLOBIN 30.2 PG (27.0-31.0); MEAN CORPUSCULAR HGB CONC 34.2 g/dL (33.0-36.5); MEAN CORPUSCULAR VOLUME 88.2 FL (78-98); MEAN PLATELET VOLUME 7.3 FL (7.4-10.4); MONOCYTES # (AUTO) 0.4 X10'3 (0-0.9); MONOCYTES % (AUTO) 4.1 % (2-12); NEUTROPHILS # (AUTO) 6.6 X10'3 (1.8-7.7); NEUTROPHILS % (AUTO) 75.6 % (42-75); PLATELET COUNT 302 X10'3 (140-440); RED BLOOD COUNT 5.23 X10'6 (4.70-6.10); RED CELL DISTRIBUTION WIDTH 13.1 % (11.5-14.5); WHITE BLOOD COUNT 8.7 X10'3 (4.5-11.0)
[2021-07-21 13:25] LABS: ALANINE AMINOTRANSFERASE 33 U/L (12-78); ALBUMIN 4.6 G/DL (3.4-5.0); ALBUMIN/GLOBULIN RATIO 1.2 (1.1-1.5); ALKALINE PHOSPHATASE 85 IU/L (46-116); ANION GAP 10 (8-16); ASPARTATE AMINO TRANSFERASE 16 U/L (10-37); BILIRUBIN,TOTAL 0.7 MG/DL (0.1-1.0); BLOOD UREA NITROGEN 10 MG/DL (7-18); BUN/CREATININE RATIO 10.8 (5.4-32.0); CALCIUM 9.7 MG/DL (8.5-10.1); CHLORIDE 102 MMOL/L (99-107); CREATININE 0.93 MG/DL (0.60-1.10); GLUCOSE 142 MG/DL (70-104); POTASSIUM 3.4 MMOL/L (3.5-5.1); SODIUM 139 MMOL/L (135-145); TOTAL CARBON DIOXIDE 26.7 MMOL/L (24-32); TOTAL PROTEIN 8.6 G/DL (6.4-8.2); eGFR > 90 ML/MIN
[2021-07-21] MEDS ORDERED: diphenhydrAMINE 50 mg/ml inj ONE (13:53)
[2021-07-21] MEDS ORDERED: ondansetron/PF 4mg/2ml inj IV ONE (14:50)
[2021-07-21] MEDS ORDERED: morphine 4 MG/ML inj SYRINge IV ONE (14:50)
[2021-07-21] MEDS ORDERED: PANT20TA18 PO (15:19)
[2021-07-21 16:22] VITALS: BP 110/57
[2021-07-22] MEDS ORDERED: pantoprazole 40mg Tablet.DR PO SCH (07:30)
[2021-07-22] MEDS ORDERED: pantoprazole 40mg Tablet.DR PO ONE (14:46)
== END 2021-07-21 16:27 | disposition home or self-care (01) ==
LOC: ER 12:27
DX: R11.15 Cyclical vomiting syndrome unrelated to migraine (principal); R11.2 Nausea with vomiting, unspecified; R10.13 Epigastric pain; F12.90 Cannabis use, unspecified, uncomplicated; Z87.11 Personal history of peptic ulcer disease; Z88.8 Allergy status to other drugs, medicaments and biological substances; Z79.899 Other long term (current) drug therapy
CPT/HCPCS: 36415; 80053; 85025; 93005; 96361; 96374; 96375; 99284; J1200; J2270; J2405; J2765; J3490; J7030

== ENCOUNTER 2021-07-23 07:58 | Emergency (ER) | payer MEDICAID ==
[~2021-07-23] VITALS: Ht 167.6 cm; Wt 75.0 kg
[~2021-07-23 07:58] MED LIST changes: +PANT20TA18 PO
[2021-07-23 08:08] VITALS: BP 142/92
[2021-07-23] MEDS ORDERED: ondansetron 4mg rapidly disintigrating tab PO ONE (08:10)
[2021-07-23] MEDS ORDERED: ondansetron/PF 4mg/2ml inj IM ONE (08:35)
[2021-07-23 09:15] LABS: ALBUMIN 4.2 G/DL (3.4-5.0); ANION GAP 11 (8-16); BLOOD UREA NITROGEN 11 MG/DL (7-18); BUN/CREATININE RATIO 12.2 (5.4-32.0); CHLORIDE 103 MMOL/L (99-107); ETHANOL < 0.010 GM/DL (0.0-0.010); GLUCOSE 131 MG/DL (70-104); LIPASE 83 U/L (73-393); POTASSIUM 3.2 MMOL/L (3.5-5.1); SODIUM 140 MMOL/L (135-145); TOTAL CARBON DIOXIDE 25.7 MMOL/L (24-32); eGFR > 90 ML/MIN
[2021-07-23] MEDS ORDERED: LORazepam 2 mg/ml vial IM ONE (09:45)
[2021-07-23] MEDS ORDERED: PHE12.5R RC (10:24)
[2021-07-23] MEDS ORDERED: CIME200T95 PO (10:25)
[2021-07-23] MEDS ORDERED: [UNRECOGNIZED DRUG - CODE] PO (10:25)
== END 2021-07-23 10:38 | disposition home or self-care (01) ==
LOC: ER 07:59
DX: R11.15 Cyclical vomiting syndrome unrelated to migraine (principal); R11.2 Nausea with vomiting, unspecified; E86.0 Dehydration; R10.84 Generalized abdominal pain; F12.90 Cannabis use, unspecified, uncomplicated; Z87.11 Personal history of peptic ulcer disease; Z88.8 Allergy status to other drugs, medicaments and biological substances; Z79.899 Other long term (current) drug therapy
CPT/HCPCS: 36415; 80048; 80320; 83690; 96372; 99284; J2060; J2405

== ENCOUNTER → 2021-07-26 | Emergency (ER) | payer MEDICAID ==
[~2021-07-26] VITALS: Ht 167.6 cm; Wt 72.7 kg
[~2021-07-26] MED LIST changes: +CIME200T95 PO; +LORazepam 2 mg/ml vial IM ONE; +PHE12.5R RC; +[UNRECOGNIZED DRUG - CODE] PO; +diphenhydrAMINE 50 mg/ml inj IM ONE; +metoclopramide 5 mg/ml inj IM ONE
[2021-07-26 01:32] VITALS: BP 142/95
--- NOTE | 2021-07-26 02:40 | NUR ---
PATIENT APPEARS CALM. PATIENT HAS ONLY VOMITED ONCE SINCE BEING IN TREATMENT AREA. PATIENT STATES IMPROVED AFTER PHARMACOLOGICAL INTERVENTION.
== END | disposition home or self-care (01) ==
LOC: ER 01:25
DX: R11.2 Nausea with vomiting, unspecified (principal); R10.84 Generalized abdominal pain; F12.90 Cannabis use, unspecified, uncomplicated; Z87.11 Personal history of peptic ulcer disease; Z88.8 Allergy status to other drugs, medicaments and biological substances; Z79.899 Other long term (current) drug therapy
CPT/HCPCS: 96372; 99284; J1200; J2060; J2765

== ENCOUNTER 2021-09-09 15:16 | Emergency (ER) | payer MEDICAID ==
[~2021-09-09] VITALS: Ht 170.2 cm; Wt 77.3 kg
[~2021-09-09 15:16] MED LIST changes: -LORazepam 2 mg/ml vial IM ONE; -PHE12.5R RC; -diphenhydrAMINE 50 mg/ml inj IM ONE; -metoclopramide 5 mg/ml inj IM ONE
[2021-09-09 15:19] VITALS: BP 131/72
[2021-09-09] MEDS ORDERED: pantoprazole 40MG/D5 100ML BAG 100 ML IV STA (15:21)
[2021-09-09] MEDS ORDERED: normal saline 1000ML IV soln IV ONE (15:25)
[2021-09-09] MEDS ORDERED: proCHLORperazine 10 MG/2 ml inj IV ONE (15:25)
[2021-09-09] MEDS ORDERED: pantoprazole 40MG/NS 100ML BAG 100 ML IV STA (15:26)
--- NOTE | 2021-09-09 16:00 | NUR ---
lab was in getting ready to draw some blood when pt started to have a seizure pt seizised for about 4 mins iv ativan was given 2mg seizure stopped shortly after pt maintained o2 states above 95% hr was in 140's
[2021-09-09] MEDS ORDERED: LORazepam 2 mg/ml vial IV ONE ×2 (16:05)
--- NOTE | 2021-09-09 16:07 | NUR ---
pt in laying and resting pt states he is a hx of seizures but does not take anything for them
[2021-09-09 16:15] LABS: BASOPHILS % (AUTO) 0.1 % (0-1); EOSINOPHILS % (AUTO) 0 % (0-6); HEMATOCRIT 41.3 % (42.0-52.0); HEMOGLOBIN 13.9 g/dl (14.0-17.9); LYMPHOCYTES # (AUTO) 0.7 X10'3 (1.1-4.8); LYMPHOCYTES % (AUTO) 3.5 % (21-51); MEAN CORPUSCULAR HEMOGLOBIN 29.8 PG (27.0-31.0); MEAN CORPUSCULAR HGB CONC 33.8 g/dL (33.0-36.5); MEAN CORPUSCULAR VOLUME 88.2 FL (78-98); MEAN PLATELET VOLUME 7.5 FL (7.4-10.4); MONOCYTES # (AUTO) 0.7 X10'3 (0-0.9); MONOCYTES % (AUTO) 3.8 % (2-12); NEUTROPHILS # (AUTO) 17.5 X10'3 (1.8-7.7); NEUTROPHILS % (AUTO) 92.6 % (42-75); PLATELET COUNT 226 X10'3 (140-440); RED BLOOD COUNT 4.69 X10'6 (4.70-6.10); RED CELL DISTRIBUTION WIDTH 13.3 % (11.5-14.5); WHITE BLOOD COUNT 18.9 X10'3 (4.5-11.0)
[2021-09-09 16:28] LABS: ALANINE AMINOTRANSFERASE 28 U/L (12-78); ALBUMIN 3.9 G/DL (3.4-5.0); ALBUMIN/GLOBULIN RATIO 1.2 (1.1-1.5); ALKALINE PHOSPHATASE 75 IU/L (46-116); ANION GAP 13 (8-16); ASPARTATE AMINO TRANSFERASE 17 U/L (10-37); BILIRUBIN,TOTAL 0.5 MG/DL (0.1-1.0); BLOOD UREA NITROGEN 10 MG/DL (7-18); BUN/CREATININE RATIO 10.4 (5.4-32.0); CALCIUM 8.4 MG/DL (8.5-10.1); CHLORIDE 107 MMOL/L (99-107); CREATININE 0.96 MG/DL (0.60-1.10); GLUCOSE 145 MG/DL (70-104); POTASSIUM 3.2 MMOL/L (3.5-5.1); SODIUM 143 MMOL/L (135-145); TOTAL CARBON DIOXIDE 22.8 MMOL/L (24-32); TOTAL PROTEIN 7.2 G/DL (6.4-8.2); eGFR > 90 ML/MIN
[2021-09-09] MEDS ORDERED: CefTRIAXone 2gm/D5W 50ml BAG 50 ML IV ONE (16:35)
[2021-09-09 16:43] LABS: CREATINE KINASE 94 U/L (39-308); ETHANOL < 0.010 GM/DL (0.0-0.010)
[2021-09-09] MEDS ORDERED: magnesium 2GM in 50ml NS 50 ML IV ONE (16:54)
[2021-09-09 17:12] LABS: MAGNESIUM 1.4 MG/DL (1.5-2.4)
[2021-09-09] MEDS ORDERED: mag hydrox/Alum hydrox/simeth 30ml oral suspension PO ONE (18:15)
[2021-09-09] MEDS ORDERED: sucralfate 1 gm tablet PO ONE (18:15)
[2021-09-09] MEDS ORDERED: PANT-47 PO (18:15)
[2021-09-09] MEDS ORDERED: LIDOcaine Viscous 15ml cup MM ONE (18:15)
[2021-09-09] MEDS ORDERED: ONDA4TAB12 PO (18:16)
[2021-09-09 19:51] LABS: TOTAL CELLS COUNTED 100
[2021-09-09 19:52] LABS: PLATELET ESTIMATE NORMAL
== END 2021-09-09 19:49 | disposition home or self-care (01) ==
LOC: ER 15:16
DX: K29.00 Acute gastritis without bleeding (principal); R56.9 Unspecified convulsions; R10.13 Epigastric pain; E86.0 Dehydration; K92.0 Hematemesis; Z88.8 Allergy status to other drugs, medicaments and biological substances; Z79.899 Other long term (current) drug therapy
CPT/HCPCS: 36415; 70450; 71045; 74176; 80053; 80320; 82550; 83735; 84145; 85007; 85025; 85610; 86885; 86900; 86901; 93005; 96361; 96365; 96366; 96368; 96375; 99285; C9113; J0696; J0780; J2060; J3475; J7030

== ENCOUNTER 2021-09-16 19:42 | Emergency (ER) | payer MEDICAID ==
[~2021-09-16] VITALS: Ht 167.6 cm; Wt 72.7 kg
[~2021-09-16 19:42] MED LIST changes: +ONDA4TAB12 PO; +PANT-47 PO
[2021-09-16] MEDS ORDERED: normal saline 1000ml 1,000 ML IV ONE (22:30)
[2021-09-16] MEDS ORDERED: haloperidol lactate 5mg/ml inj IM ONE (22:30)
[2021-09-16] MEDS ORDERED: morphine 4 MG/ML inj SYRINge IV ONE (22:35)
[2021-09-16 22:53] LABS: BASOPHILS % (AUTO) 0.3 % (0-1); EOSINOPHILS % (AUTO) 0 % (0-6); HEMATOCRIT 44.4 % (42.0-52.0); HEMOGLOBIN 15.1 g/dl (14.0-17.9); LYMPHOCYTES # (AUTO) 0.5 X10'3 (1.1-4.8); LYMPHOCYTES % (AUTO) 3.9 % (21-51); MEAN CORPUSCULAR HEMOGLOBIN 29.9 PG (27.0-31.0); MEAN CORPUSCULAR HGB CONC 33.9 g/dL (33.0-36.5); MEAN CORPUSCULAR VOLUME 88.3 FL (78-98); MEAN PLATELET VOLUME 7.6 FL (7.4-10.4); MONOCYTES # (AUTO) 0.3 X10'3 (0-0.9); MONOCYTES % (AUTO) 2.1 % (2-12); NEUTROPHILS # (AUTO) 12.6 X10'3 (1.8-7.7); NEUTROPHILS % (AUTO) 93.7 % (42-75); PLATELET COUNT 268 X10'3 (140-440); RED BLOOD COUNT 5.03 X10'6 (4.70-6.10); RED CELL DISTRIBUTION WIDTH 13.5 % (11.5-14.5); WHITE BLOOD COUNT 13.5 X10'3 (4.5-11.0)
[2021-09-16 23:21] LABS: ALANINE AMINOTRANSFERASE 36 U/L (12-78); ALBUMIN 4.5 G/DL (3.4-5.0); ALBUMIN/GLOBULIN RATIO 1.3 (1.1-1.5); ALKALINE PHOSPHATASE 84 IU/L (46-116); ANION GAP 12 (8-16); ASPARTATE AMINO TRANSFERASE 16 U/L (10-37); BILIRUBIN,DIRECT 0.2 MG/DL (0-0.3); BILIRUBIN,TOTAL 0.6 MG/DL (0.1-1.0); BLOOD UREA NITROGEN 12 MG/DL (7-18); CALCIUM 9.4 MG/DL (8.5-10.1); CHLORIDE 104 MMOL/L (99-107); CREATININE 0.92 MG/DL (0.60-1.10); GLUCOSE 150 MG/DL (70-104); LIPASE 69 U/L (73-393); POTASSIUM 3.6 MMOL/L (3.5-5.1); SODIUM 141 MMOL/L (135-145); TOTAL CARBON DIOXIDE 24.6 MMOL/L (24-32); eGFR > 90 ML/MIN
[2021-09-16] MEDS ORDERED: diphenhydrAMINE 50 mg/ml inj ONE (23:27)
[2021-09-16] MEDS ORDERED: LORazepam 2 mg/ml vial ONE (23:28)
--- NOTE | 2021-09-16 23:35 | NUR ---
PT STARTED MAKING GRUNTING NOISES. PT'S BODY WAS RIGID. HEART INCREASED TO 160S. IMMEDIATELY CALLED FOR HELP. DR DAILEY AND SEVERAL RNS IN ROOM. DR DAILEY ORDERED ATIVAN AND BENADRYL. PT'S HEART RATE BACK TO NORMAL. PT SLEEPY BUT AWAKENS WHEN CALLING HIS NAME. VITALS STABLE.
[2021-09-17] MEDS ORDERED: LORazepam 2 mg/ml vial IV ONE (00:10)
[2021-09-17] MEDS ORDERED: diphenhydrAMINE 50 mg/ml inj IV ONE (00:10)
[2021-09-17 05:01] VITALS: BP 124/72
== END 2021-09-17 05:04 | disposition home or self-care (01) ==
LOC: ER 19:42
DX: R11.2 Nausea with vomiting, unspecified (principal); R10.84 Generalized abdominal pain; Z87.11 Personal history of peptic ulcer disease; Z88.8 Allergy status to other drugs, medicaments and biological substances; Z79.899 Other long term (current) drug therapy
CPT/HCPCS: 36415; 80048; 80076; 83690; 85025; 96372; 96374; 96375; 99285; J1200; J1630; J2060; J2270; J7030

== ENCOUNTER 2021-10-12 14:31 | Emergency (ER) | payer MEDICAID ==
[~2021-10-12] VITALS: Ht 167.6 cm; Wt 72.7 kg
[2021-10-12] MEDS ORDERED: LORazepam 2 mg/ml vial IV ONE (14:45)
[2021-10-12] MEDS ORDERED: normal saline 1000ML IV soln IVB ONE (14:45)
[2021-10-12] MEDS ORDERED: ondansetron/PF 4mg/2ml inj IV ONE (14:45)
[2021-10-12] MEDS ORDERED: famotidine/PF 10 mg/ml inj IV ONE (14:45)
[2021-10-12 15:23] LABS: BASOPHILS % (AUTO) 0 % (0-1); EOSINOPHILS % (AUTO) 0 % (0-6); HEMATOCRIT 44.1 % (42.0-52.0); HEMOGLOBIN 14.8 g/dl (14.0-17.9); LYMPHOCYTES # (AUTO) 0.7 X10'3 (1.1-4.8); LYMPHOCYTES % (AUTO) 5.3 % (21-51); MEAN CORPUSCULAR HEMOGLOBIN 29.5 PG (27.0-31.0); MEAN CORPUSCULAR HGB CONC 33.6 g/dL (33.0-36.5); MEAN CORPUSCULAR VOLUME 87.9 FL (78-98); MEAN PLATELET VOLUME 7.6 FL (7.4-10.4); MONOCYTES # (AUTO) 0.2 X10'3 (0-0.9); MONOCYTES % (AUTO) 1.7 % (2-12); PLATELET COUNT 257 X10'3 (140-440); RED BLOOD COUNT 5.02 X10'6 (4.70-6.10); RED CELL DISTRIBUTION WIDTH 13.6 % (11.5-14.5); WHITE BLOOD COUNT 12.9 X10'3 (4.5-11.0)
[2021-10-12] MEDS ORDERED: LORazepam 2 mg/ml vial ONE (15:23)
[2021-10-12] MEDS ORDERED: magnesium 2GM in 50ml NS 50 ML IV ONE (15:25)
--- NOTE | 2021-10-12 15:31 | NUR ---
witnessed seizure(decerebrate) lasting 2 minutes,Salinas Loomis at bedside.Verbal order 2mg ativan IV stat.Med given.Seizure pads on.Report given to primary RN Monica.
[2021-10-12 15:34] LABS: ALANINE AMINOTRANSFERASE 30 U/L (12-78); ALBUMIN 4.6 G/DL (3.4-5.0); ALBUMIN/GLOBULIN RATIO 1.3 (1.1-1.5); ALKALINE PHOSPHATASE 80 IU/L (46-116); ANION GAP 13 (8-16); ASPARTATE AMINO TRANSFERASE 17 U/L (10-37); BILIRUBIN,TOTAL 0.6 MG/DL (0.1-1.0); BLOOD UREA NITROGEN 11 MG/DL (7-18); BUN/CREATININE RATIO 13.1 (5.4-32.0); CALCIUM 9.1 MG/DL (8.5-10.1); CHLORIDE 106 MMOL/L (99-107); CREATININE 0.84 MG/DL (0.60-1.10); GLUCOSE 147 MG/DL (70-104); POTASSIUM 3.7 MMOL/L (3.5-5.1); SODIUM 141 MMOL/L (135-145); TOTAL CARBON DIOXIDE 21.9 MMOL/L (24-32); TOTAL PROTEIN 8.2 G/DL (6.4-8.2); eGFR > 90 ML/MIN
--- NOTE | 2021-10-12 17:03 | NUR ---
Magnesium infusion almost complete. Fluids x2 bolus will be done shortly. Pt resting with sheet over his head, no apparent distress or needs at this time.
--- NOTE | 2021-10-12 18:04 | NUR ---
Pt sleeping, no apparent needs or distress. Fluids complete.
[2021-10-12 18:41] VITALS: BP 114/58
== END 2021-10-12 19:05 | disposition home or self-care (01) ==
LOC: ER 14:40
DX: R11.15 Cyclical vomiting syndrome unrelated to migraine (principal); R56.9 Unspecified convulsions; R11.2 Nausea with vomiting, unspecified; Z87.11 Personal history of peptic ulcer disease; Z88.8 Allergy status to other drugs, medicaments and biological substances; Z79.899 Other long term (current) drug therapy
CPT/HCPCS: 36415; 80053; 85025; 96361; 96365; 96375; 99285; J2060; J2405; J3475; J3490; J7030; 96366

== ENCOUNTER 2021-10-29 08:34 | Emergency (ER) | payer MEDICAID ==
[~2021-10-29] VITALS: Ht 167.6 cm; Wt 75.0 kg
[2021-10-29 09:36] LABS: BASOPHILS % (AUTO) 0.3 % (0-1); EOSINOPHILS % (AUTO) 0 % (0-6); HEMOGLOBIN 13.8 g/dl (14.0-17.9); LYMPHOCYTES # (AUTO) 0.8 X10'3 (1.1-4.8); LYMPHOCYTES % (AUTO) 5.6 % (21-51); MEAN CORPUSCULAR HEMOGLOBIN 29.6 PG (27.0-31.0); MEAN CORPUSCULAR HGB CONC 33.5 g/dL (33.0-36.5); MEAN CORPUSCULAR VOLUME 88.2 FL (78-98); MEAN PLATELET VOLUME 7.3 FL (7.4-10.4); MONOCYTES # (AUTO) 0.4 X10'3 (0-0.9); MONOCYTES % (AUTO) 2.8 % (2-12); NEUTROPHILS # (AUTO) 13.1 X10'3 (1.8-7.7); NEUTROPHILS % (AUTO) 91.3 % (42-75); PLATELET COUNT 292 X10'3 (140-440); RED BLOOD COUNT 4.65 X10'6 (4.70-6.10); RED CELL DISTRIBUTION WIDTH 13.8 % (11.5-14.5); WHITE BLOOD COUNT 14.4 X10'3 (4.5-11.0)
[2021-10-29 09:46] LABS: ALANINE AMINOTRANSFERASE 40 U/L (12-78); ALBUMIN 3.9 G/DL (3.4-5.0); ALBUMIN/GLOBULIN RATIO 1.1 (1.1-1.5); ALKALINE PHOSPHATASE 73 IU/L (46-116); ANION GAP 9 (8-16); ASPARTATE AMINO TRANSFERASE 19 U/L (10-37); BILIRUBIN,TOTAL 0.5 MG/DL (0.1-1.0); BLOOD UREA NITROGEN 8 MG/DL (7-18); BUN/CREATININE RATIO 11.4 (5.4-32.0); CALCIUM 8.5 MG/DL (8.5-10.1); CHLORIDE 106 MMOL/L (99-107); GLUCOSE 151 MG/DL (70-104); LIPASE 71 U/L (73-393); POTASSIUM 3.2 MMOL/L (3.5-5.1); SODIUM 140 MMOL/L (135-145); TOTAL CARBON DIOXIDE 24.9 MMOL/L (24-32); TOTAL PROTEIN 7.3 G/DL (6.4-8.2); eGFR > 90 ML/MIN
[2021-10-29] MEDS ORDERED: ondansetron/PF 4mg/2ml inj IV ONE ×2 (09:50→11:45)
[2021-10-29] MEDS ORDERED: diphenhydrAMINE 50 mg/ml inj IV ONE ×2 (09:50→11:05)
[2021-10-29] MEDS ORDERED: diazepam inj 5 MG/ML inj. IV ONE (09:50)
[2021-10-29] MEDS ORDERED: normal saline 1000ML IV soln IVB ONE (09:50)
--- NOTE | 2021-10-29 10:11 | NUR ---
emesis x1 300cc clear brownish
--- NOTE | 2021-10-29 11:33 | NUR ---
pt states, my legs are really hurting, i think I might have a blood clot. sob worsening. pt on 2l/min nc [address] ji informed, says she will be in shortly.
[2021-10-29 12:27] VITALS: BP 130/74
== END 2021-10-29 12:30 | disposition home or self-care (01) ==
LOC: ER 08:36
DX: R11.15 Cyclical vomiting syndrome unrelated to migraine (principal); Z88.8 Allergy status to other drugs, medicaments and biological substances; Z79.899 Other long term (current) drug therapy
CPT/HCPCS: 36415; 80053; 83690; 85025; 96361; 96374; 96375; 96376; 99284; J1200; J2405; J3360; J7030

== ENCOUNTER 2021-12-19 23:50 | Emergency (ER) | payer MEDICAID ==
[~2021-12-19] VITALS: Ht 170.2 cm; Wt 72.7 kg
[2021-12-19 23:54] VITALS: BP 166/100
== END 2021-12-20 02:24 | disposition left against medical advice (07) ==
LOC: ER 23:50
DX: R11.0 Nausea (principal); Z53.21 Procedure and treatment not carried out due to patient leaving prior to being seen by health care provider

== ENCOUNTER 2022-09-04 12:38 | Emergency (ER) | payer MEDICAID ==
[~2022-09-04] VITALS: Ht 167.6 cm; Wt 68.6 kg
[2022-09-04 12:48] VITALS: BP 141/82
[2022-09-04] MEDS ORDERED: ondansetron 4mg rapidly disintigrating tab PO ONE (13:15)
[2022-09-04] MEDS ORDERED: capsaicin 0.025% 60gm cream TP STA (13:15)
[2022-09-04] MEDS ORDERED: ONDA4TAB12 PO (13:50)
== END 2022-09-04 14:04 | disposition home or self-care (01) ==
LOC: ER 12:38
DX: R11.2 Nausea with vomiting, unspecified (principal); Z72.89 Other problems related to lifestyle; Z88.8 Allergy status to other drugs, medicaments and biological substances; Z79.899 Other long term (current) drug therapy
CPT/HCPCS: 99283